=== PATIENT | male | born 1960 | race Caucasian/White ===

== ENCOUNTER 2017-04-13 06:20 | Day surgery (SDC) | payer OTHER ==
[2017-04-13] MEDS ORDERED: Versed 2 MG/2 ML Injection IV ONE (06:21)
[2017-04-13] MEDS ORDERED: DIPRIVAN 200 MG/20 ML IV ONE (06:21)
[2017-04-13] MEDS ORDERED: Lactated Ringers 1,000 ML IV SCH (06:30)
--- NOTE | 2017-04-13 07:44 | HP ---
DATE OF SURGERY: 04/13/2017 ADMISSION DIAGNOSIS: Screening. ANTICIPATED PROCEDURE: Colonoscopy. HISTORY OF PRESENT ILLNESS: The patient has no symptoms. No family history. He has not had a scope. He presents for colonsocopic examination. PAST MEDICAL HISTORY: ALLERGIES: NONE. MEDICATIONS: Flomax. PAST SURGICAL HISTORY: None. SOCIAL HISTORY: Negative. FAMILY HISTORY: Hypertension. REVIEW OF SYSTEMS: Negative. PHYSICAL EXAMINATION: VITAL SIGNS: Normal. CHEST: Clear. COR: Regular. ABDOMEN: No palpable organomegaly or mass. IMPRESSION: A patient requiring screening colonoscopy. PLAN: Screening colonoscopy under MAC sedation.
[2017-04-13] MEDS ORDERED: Lactated Ringers 1,000 ML IV ONE (09:14)
[2017-04-13 10:57] VITALS: O2SAT 99
[2017-04-13 10:58] VITALS: BP 147/103; PULSE 64
--- NOTE | 2017-04-13 14:54 | OP ---
SURGERY DATE/TIME: 04/13/2017 0855 PREOPERATIVE DIAGNOSIS: Screening. POSTOPERATIVE DIAGNOSIS: Two polyps 8 mm and 7 mm location cecum and distal descending colon two jars. PROCEDURE: Colonoscopy complete to cecum. Hot polypectomy x2. SURGEON: Kapil Prakash M.D. ANESTHESIA: MAC. COMPLICATIONS: None. CONDITION: Stable. INDICATION: A patient requiring evaluation. He has not had endoscopic examination to date. DESCRIPTION OF PROCEDURE: Taken to the endoscopy suite. Left lateral decubitus position. After suitable sedation obtained the scope advanced to the cecum, cecal trifurcation. Ileocecal valve was normal. Coming back on the first fold back in between the folds on the opposite wall of the ileocecal valve was an 8 mm polyp this was picked up and taken with hot biopsy forceps to extinction. 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 The ascending, hepatic, transverse, splenic, descending was normal until near the junction of the descending and sigmoid. A 7 mm polyp picked up and taken with hot biopsy forceps. This did seem to ooze and required additional cautery and it was dry at this time. The scope is withdrawn. No additional findings. IMPRESSION: Two polyps successfully taken. PLAN: Follow up in three years.
== END 2017-04-13 10:55 | disposition home or self-care (01) ==
LOC: SDC 06:20
PROVIDERS: ATTEND Surgery
PROC: 0DBM8ZX Excision of Descending Colon, Via Natural or Artificial Opening Endoscopic, Diagnostic (ICD-10-PCS; principal; 2017-04-13)
PROC: 0DBN8ZX Excision of Sigmoid Colon, Via Natural or Artificial Opening Endoscopic, Diagnostic (ICD-10-PCS; 2017-04-13)
DX: K63.5 Polyp of colon (principal); I10 Essential (primary) hypertension
CPT/HCPCS: 00810; 88305; J2250; J2704

== ENCOUNTER 2021-04-15 06:32 | Day surgery (SDC) | payer OTHER ==
--- NOTE | 2021-01-28 11:58 | HP ---
DATE OF SURGERY: 02/04/2021 HISTORY OF PRESENT ILLNESS: The patient presents for follow up colonoscopy. The patient has history of colon polyps on previous colonoscopy. The patient denies any GI signs or symptoms at this time. PAST MEDICAL HISTORY: Coronary artery disease, cardiac stents, hyperlipidemia, diabetes, benign prostatic hypertrophy. PAST SURGICAL HISTORY: Heart stent. ALLERGIES: NKDA. MEDICATIONS: Plavix, Crestor, Zetia, Metformin, Flomax, Amaryl, Coreg. FAMILY HISTORY: Diabetes, heart disease. SOCIAL HISTORY: None reported. REVIEW OF SYSTEMS: CONSTITUTIONAL: Denies fever or chills. CHEST: Denies shortness of breath. CVS: Denies chest pain. ABDOMEN: Denies abdominal pain, nausea, vomiting, diarrhea, constipation or rectal bleeding. PHYSICAL EXAMINATION: GENERAL: No acute distress. CHEST: Nonlabored. No shortness of breath. CVS: Regular rate and rhythm. ABDOMEN: Soft, nontender. IMPRESSION: History of colon polyps. PLAN: Colonoscopy with Dr. Kapil Prakash. As dictated by Lauren Bailon NP.
--- NOTE | 2021-04-12 13:42 | HP ---
DATE OF SURGERY: 04/15/2021 HISTORY OF PRESENT ILLNESS: The patient presents for three year follow up of colon polyps. Denies GI signs or symptoms. Denies family history of colon cancer. The patient complains of right upper quadrant and umbilical pain. He did have a small umbilical hernia on exam. PAST MEDICAL HISTORY: Hyperlipidemia, coronary artery disease, heart stents, benign prostatic hypertrophy, diabetes. PAST SURGICAL HISTORY: Heart stents. ALLERGIES: NKDA. MEDICATIONS: Plavix, Crestor, Zetia, Metformin, Flomax, Amaryl, Coreg/ FAMILY HISTORY: Heart disease, diabetes. SOCIAL HISTORY: None. REVIEW OF SYSTEMS: CONSTITUTIONAL: Denies fever or chills. CHEST: Denies shortness of breath. CVS: Denies chest pain. ABDOMEN: Reports some right upper quadrant and umbilical hernia pain. Denies nausea, vomiting, diarrhea, constipation or rectal bleeding. PHYSICAL EXAMINATION: GENERAL: No acute distress. CHEST: Nonlabored. No shortness of breath. CVS: Regular rate and rhythm. ABDOMEN: Soft, nontender. IMPRESSION: History of colon polyps. PLAN: Colonoscopy with Dr. Kapil Prakash. As dictated by Lauren Bailon NP.
[2021-04-15] MEDS ORDERED: Lactated Ringers 1,000 ML IV SCH (07:00)
[2021-04-15] MEDS ORDERED: DIPRIVAN 200 MG/20 ML IV ONE ×2 (07:21→09:15)
[2021-04-15 10:02] VITALS: O2SAT 95
[2021-04-15 10:07] VITALS: BP 118/71; PULSE 63
--- NOTE | 2021-04-15 12:54 | OP ---
SURGERY DATE/TIME: 04/15/2021 0855 PREOPERATIVE DIAGNOSIS: Follow up polyp. POSTOPERATIVE DIAGNOSES: 1) One polyp 1 cm distal descending colon. 2) Moderate internal hemorrhoids. PROCEDURES: 1) Colonoscopy complete to cecum. 2) Hot polypectomy x1. SURGEON: Kapil Prakash M.D. [employer]: Spring Sanchez M.D., [facility]. ANESTHESIA: MAC. COMPLICATIONS: None. CONDITION: Stable. INDICATION: A patient requiring evaluation. DESCRIPTION OF PROCEDURE: Taken to endoscopy. MAC sedation provided. Scope introduced. The anal digital examination was satisfactory and the prostate was satisfactory for age, nothing specific. The scope advanced to the cecum. Base of the cecum, ileocecal valve, appendiceal orifice, ascending, hepatic, transverse, splenic and descending. In the distal descending, a 1 cm polyp was picked up and extinguished with hot biopsy forceps. Sigmoid, rectum, anus moderate internal hemorrhoids. The patient tolerated the procedure satisfactorily. Follow up in three to five years. The patient had an excellent bowel prep. His colon was really quite nice except for the one polyp.
== END 2021-04-15 10:15 | disposition home or self-care (01) ==
LOC: SDC 06:32
PROVIDERS: ATTEND Surgery
DX: Z09 Encounter for follow-up examination after completed treatment for conditions other than malignant neoplasm (principal); Z86.010 Personal history of colon polyps; D12.4 Benign neoplasm of descending colon; K64.8 Other hemorrhoids; E11.9 Type 2 diabetes mellitus without complications; Z79.899 Other long term (current) drug therapy
CPT/HCPCS: 82947; 88305; J2704

== ENCOUNTER 2023-12-15 15:08 | Inpatient (IN) | payer OTHER ==
--- NOTE | 2023-12-15 15:11 | ERPHSYRPT ---
- History of Present Illness Time Seen by Provider: 12/15/23 15:10 Source: patient Exam Limitations: no limitations Physician History: This is an overweight 63-year-old white male patient who presents to the emergency department with his spouse by private vehicle secondary to fever and dysuria. Patient had old Keflex available to him so he took that medication. He has taken a total of 3 doses of that antibiotic. He also has had some nausea and bodyaches as well. Patient denies chest pain. Patient denies shortness of breath. Patient does have a history of coronary artery disease and is on Plavix. He has a history of hypertension and type 2 diabetes. He also has a history of hyperlipidemia. Timing/Duration: yesterday Fever Severity: mild Fever Therapy CLAIMS COORDINATOR: Acetaminophen Associated Symptoms: muscle aches, nausea/vomiting, weakness, No chest pain, No confusion, No cough, No diaphoresis, No shortness of breath, No sore throat, No stiff neck Allergies/Adverse Reactions: No Known Drug Allergies Allergy (Verified 12/15/23 15:13) Home Medications: Aspirin 81 mg PO HS 12/02/19 [History] Ezetimibe 10 mg [Zetia 10 MG] 10 mg PO DAILY 12/02/19 [History] Glimepiride 4 mg [Amaryl 4 mg] 2 mg PO DAILY 12/02/19 [History] Carvedilol 3.125 mg [Coreg 3.125 MG] 3.125 mg PO DAILY 09/23/20 [History] Clopidogrel Bisulfate [PLAVIX Tablet] 75 mg PO DAILY 09/23/20 [History] Rosuvastatin Calcium [Crestor] 40 mg PO DAILY 09/23/20 [History] Cephalexin Mh 500 mg [Keflex 500 mg] 500 mg PO QID 12/15/23 [History] Fesoterodine Fumarate [Toviaz] 4 mg PO DAILY 12/15/23 [History] Metformin HCl [Metformin HCl ER] 750 mg PO DAILY 12/15/23 [History] Hx Tetanus, Diphtheria Vaccination/Date Given: Yes (2014) Hx Influenza Vaccination/Date Given: No Hx Pneumococcal Vaccination/Date Given: No Travel Risk - International Travel Have you traveled outside of the country in past 3 weeks: No - Emerging Infectious Disease Are you exhibiting symptoms associated with any current EIDs: Yes Symptoms: Fever, Headaches/Body Aches/ - Review of Systems Constitutional: Fever, Chills, Weakness Eyes: No Symptoms Ears, Nose, & Throat: No Symptoms Respiratory: No Symptoms Cardiac: No Symptoms Abdominal/Gastrointestinal: Nausea, Appetite Changes Genitourinary Symptoms: Dysuria, Frequency, Urgency Musculoskeletal: Arthralgias, Myalgias Skin: No Symptoms Neurological: No Symptoms Psychological: No Symptoms Endocrine: No Symptoms Hematologic/Lymphatic: No Symptoms Immunological/Allergic: No Symptoms All Other Systems: Reviewed and Negative - Past Medical History Pertinent Past Medical History: Yes Neurological History: No Pertinent History ENT History: No Pertinent History Cardiac History: Coronary Artery Disease, High Cholesterol, Hypertension Respiratory History: Sleep Apnea, Other Endocrine Medical History: Diabetes Type II Musculoskeletal History: No Pertinent History GI Medical History: No Pertinent History History: Other Psycho-Social History: No Pertinent History Male Reproductive Disorders: No Pertinent History Other Medical History: takes flomax, uses breathing machine at night - Past Surgical History Past Surgical History: Yes Neuro Surgical History: No Pertinent History Cardiac: Cardiac Catheterization, Cardiac Stent Respiratory: No Pertinent History Gastrointestinal: No Pertinent History Genitourinary: No Pertinent History Musculoskeletal: No Pertinent History Male Surgical History: No Pertinent History - Social History Smoking Status: Never smoker Exposure to second hand smoke: No Drug Use: none Patient Lives Alone: No - Nursing Vital Signs Nursing Vital Signs: Initial Vital Signs Temperature 99.3 F 12/15/23 15:16 Pulse Rate 99 H 12/15/23 15:16 Respiratory Rate 25 H 12/15/23 15:16 Blood Pressure 102/67 12/15/23 15:16 O2 Sat by Pulse Oximetry 97 12/15/23 15:16 Pain Scale Pain Intensity 0 - Physical Exam General Appearance: no apparent distress, alert, anxiety, obese Eye Exam: PERRL/EOMI, eyes nml inspection ENT Exam: normal ENT inspection, no apparent trauma, hearing grossly normal, TMs normal Neck Exam: normal inspection, non-tender, supple, full range of motion Respiratory Exam: normal breath sounds, lungs clear, no respiratory distress, no accessory muscle use, No chest non-tender Cardiovascular/Chest Exam: normal heart sounds, regular rate/rhythm Gastrointestinal/Abdominal Exam: soft, non tender, no distention, no mass, no guarding, no ecchymosis, no organomegaly, no pulsatile mass, normal bowel sounds Rectal Exam: not done Extremity Exam: normal range of motion, normal inspection Neurologic Exam: alert, oriented x 3, cooperative, ton container filler II-XII nml as tested, nml cerebellar function, nml station & gait, sensation nml Skin Exam: normal color, warm, dry Lymphatic: No adenopathy SpO2 Interpretation: normal O2 Delivery: Room Air - Course Nursing assessment & vital signs reviewed: Yes Ordered Tests: Active Orders 24 hr Category Date Time Status Pony Ride Operator STAT Care 12/15/23 15:41 Active IV Insertion STAT Care 12/15/23 15:41 Active Pulse Oximetry (ED) STAT Care 12/15/23 15:41 Active ABDOMEN AND PELVIS W/0 CONTRAS [CT] Stat Exams 12/15/23 16:08 Completed CHEST 1 VIEW (PORTABLE) Stat Exams 12/15/23 15:41 Completed BLOOD CULTURE Stat Lab 12/15/23 16:08 Received CBC W DIFF Stat Lab 12/15/23 16:00 Completed CMP Stat Lab 12/15/23 16:00 Completed CULTURE,URINE Stat Lab 12/15/23 18:02 Received Lactic Acid Stat Lab 12/15/23 16:30 Completed MONO SCREEN Stat Lab 12/15/23 16:00 Completed UA W/RFX UR CULTURE Stat Lab 12/15/23 18:02 Completed Medication Summary Generic Name Dose Route Start Last Admin Trade Name Freq PRN Reason Stop Dose Admin Sodium Chloride 1,000 mls @ 150 mls/hr 12/15/23 19:00 12/15/23 19:06 Sodium Chloride 0.9% 1000 Ml IV 01/14/24 18:59 150 mls/hr .[id number] GEM Administration Discontinued Medications Generic Name Dose Route Start Last Admin Trade Name Freq PRN Reason Stop Dose Admin Acetaminophen 650 mg 12/15/23 15:41 12/15/23 15:55 Acetaminophen 325 Mg Tablet PO 12/15/23 15:42 650 mg STAT STA Administration Acetaminophen Confirm 12/15/23 15:50 Acetaminophen 325 Mg Tablet Administered 12/15/23 15:51 Dose 650 mg .ROUTE .STK-MED ONE Sodium Chloride 1,000 mls @ 999 mls/hr 12/15/23 15:41 12/15/23 17:19 Sodium Chloride 0.9% 1000 Ml IV 12/15/23 16:41 Infused .Q1H1M STA Infusion Sodium Chloride Confirm 12/15/23 15:50 Sodium Chloride 0.9% 1000 Ml Administered 12/15/23 15:51 Dose 1,000 mls @ ud .ROUTE .STK-MED ONE Sodium Chloride 1,000 mls @ 999 mls/hr 12/15/23 17:20 12/15/23 19:24 Sodium Chloride 0.9% 1000 Ml IV 12/15/23 18:20 Infused .Q1H1M STA Infusion Sodium Chloride Confirm 12/15/23 17:28 Sodium Chloride 0.9% 1000 Ml Administered 12/15/23 17:29 Dose 1,000 mls @ ud .ROUTE .STK-MED ONE Ceftriaxone Sodium 1 gm in 100 mls @ 200 mls/hr 12/15/23 18:37 12/15/23 19:36 Rocephin 1 Gm / 100 Ml Nacl IV 12/15/23 19:06 Infused STAT ONE Infusion Ceftriaxone Sodium Confirm 12/15/23 18:43 Rocephin 1 Gm / 100 Ml Nacl Administered 12/15/23 18:44 Dose 1 gm in 100 mls @ ud IV .STK-MED ONE Phenazopyridine HCl 200 mg 12/15/23 15:47 12/15/23 15:56 Phenazopyridine Hcl 200 Mg Tablet PO 12/15/23 15:48 200 mg STAT ONE Administration Phenazopyridine HCl Confirm 12/15/23 15:49 Phenazopyridine Hcl 200 Mg Tablet Administered 12/15/23 15:50 Dose 200 mg .ROUTE .STK-MED ONE Lab/Rad Data: Laboratory Result Diagrams 12/15/23 16:00 12/15/23 16:00 Laboratory Results 12/15/23 12/15/23 12/15/23 Range/Units 18:02 16:30 16:20 WBC (4.23-9.07) x10^3/uL RBC (4.63-6.08) x10^6/uL Hgb (13.7-17.5) g/dL Hct (40.1-51.0) % MCV (79.0-92.2) fL MCH (25.7-32.2) pg MCHC (32.3-36.5) g/dL RDW (11.6-14.4) % Plt Count (163-337) x10^3/uL MPV (9.4-12.4) fL Gran % (34.0-67.9) % Immature Gran % (Auto) (0.001-0.429) % Nucleat RBC Rel Count (0.00-0.2) % Eos # (Auto) (0.04-0.54) x10^3/uL Immature Gran # (Auto) (0.001-0.031) x10^3u/L Absolute Lymphs (auto) (1.32-3.57) x10^3/uL Absolute Monos (auto) (0.30-0.82) x10^3/uL Absolute Nucleated RBC (0.00-0.012) x10^3u/L Lymphocytes % (21.8-53.1) % Monocytes % (5.3-12.2) % Eosinophils % (0.8-7.0) % Basophils % (0.2-1.2) % Absolute Granulocytes (1.78-5.38) x10^3/uL Basophils # (0.01-0.08) x10^3/uL Sodium (135-145) mmol/L Potassium (3.5-5.1) mmol/L Chloride (98-107) mmol/L Carbon Dioxide (22-30) mmol/L Anion Gap (5-15) MEQ/L BUN (9-20) mg/dL Creatinine (0.66-1.25) mg/dL Estimated GFR ML/MIN Glucose (74-106) mg/dL Lactic Acid 1.7 (0.4-2.0) Calcium (8.4-10.2) mg/dL Total Bilirubin (0.2-1.3) mg/dL AST (17-59) U/L ALT (0-50) U/L Alkaline Phosphatase (38-126) U/L Serum Total Protein (6.3-8.2) g/dL Albumin (3.5-5.0) g/dL Urine Color [place] A (Yellow) Urine Appearance Clear (Clear) Urine pH 5.0 (4.6-8.0) Ur Specific [place] >=1.030 A (1.005-1.030) Urine Protein Negative (Negative) Urine Glucose (UA) >=1000 A (Negative) mg/dL Urine Ketones Trace A (Negative) Urine Blood Negative (Negative) Urine Nitrite Positive A (Negative) Urine Bilirubin Small A (Negative) Urine Urobilinogen 1.0 A (0.2) mg/dL Ur Leukocyte Esterase Small A (Negative) U Hyaline Cast (Auto) NONE SEEN (0-2) /LPF Urine Microscopic RBC 3-5 (0-5) /HPF Urine Microscopic WBC 6-10 A (0-5) /HPF Ur Epithelial Cells None Seen (None Seen) /HPF Urine Bacteria Rare A (None Seen) /HPF Urine Culture Reflexed YES (NO) Monoscreen (NEGATIVE) Influenza Type A Ag NEGATIVE (NEGATIVE) Influenza Type B Ag NEGATIVE (NEGATIVE) RSV (PCR) NEGATIVE (NEGATIVE) SARS-CoV-2 (PCR) NEGATIVE (NEGATIVE) Slides for Path Review 12/15/23 12/15/23 12/15/23 Range/Units 16:00 16:00 16:00 WBC 8.4 (4.23-9.07) x10^3/uL RBC 4.39 L (4.63-6.08) x10^6/uL Hgb 13.5 L (13.7-17.5) g/dL Hct 39.0 L (40.1-51.0) % MCV 88.8 (79.0-92.2) fL MCH 30.8 (25.7-32.2) pg MCHC 34.6 (32.3-36.5) g/dL RDW 12.6 (11.6-14.4) % Plt Count 102 L (163-337) x10^3/uL MPV 9.4 (9.4-12.4) fL Gran % 83.7 H (34.0-67.9) % Immature Gran % (Auto) 0.6 H (0.001-0.429) % Nucleat RBC Rel Count 0.0 (0.00-0.2) % Eos # (Auto) 0.02 L (0.04-0.54) x10^3/uL Immature Gran # (Auto) 0.05 H (0.001-0.031) x10^3u/L Absolute Lymphs (auto) 0.44 L (1.32-3.57) x10^3/uL Absolute Monos (auto) 0.84 H (0.30-0.82) x10^3/uL Absolute Nucleated RBC 0.00 (0.00-0.012) x10^3u/L Lymphocytes % 5.3 L (21.8-53.1) % Monocytes % 10.0 (5.3-12.2) % Eosinophils % 0.2 L (0.8-7.0) % Basophils % 0.2 (0.2-1.2) % Absolute Granulocytes 7.01 H (1.78-5.38) x10^3/uL Basophils # 0.02 (0.01-0.08) x10^3/uL Sodium 136 (135-145) mmol/L Potassium 3.7 (3.5-5.1) mmol/L Chloride 104 (98-107) mmol/L Carbon Dioxide 19 L (22-30) mmol/L Anion Gap 16.8 H (5-15) MEQ/L BUN 20 (9-20) mg/dL Creatinine 0.87 (0.66-1.25) mg/dL Estimated GFR 97.6 ML/MIN Glucose 143 H (74-106) mg/dL Lactic Acid (0.4-2.0) Calcium 9.7 (8.4-10.2) mg/dL Total Bilirubin 1.70 H (0.2-1.3) mg/dL AST 27 (17-59) U/L ALT 24 (0-50) U/L Alkaline Phosphatase 85 (38-126) U/L Serum Total Protein 7.4 (6.3-8.2) g/dL Albumin 4.5 (3.5-5.0) g/dL Urine Color (Yellow) Urine Appearance (Clear) Urine pH (4.6-8.0) Ur Specific [place] (1.005-1.030) Urine Protein (Negative) Urine Glucose (UA) (Negative) mg/dL Urine Ketones (Negative) Urine Blood (Negative) Urine Nitrite (Negative) Urine Bilirubin (Negative) Urine Urobilinogen (0.2) mg/dL Ur Leukocyte Esterase (Negative) U Hyaline Cast (Auto) (0-2) /LPF Urine Microscopic RBC (0-5) /HPF Urine Microscopic WBC (0-5) /HPF Ur Epithelial Cells (None Seen) /HPF Urine Bacteria (None Seen) /HPF Urine Culture Reflexed (NO) Monoscreen NEGATIVE (NEGATIVE) Influenza Type A Ag (NEGATIVE) Influenza Type B Ag (NEGATIVE) RSV (PCR) (NEGATIVE) SARS-CoV-2 (PCR) (NEGATIVE) Slides for Path Review YES - Progress Progress: improved, re-examined Progress Note: 12/15/23 16:09 Medical decision making and the assignment of moderate complexity to this patient's medical issue today is based on review of the patient's past medical history, review the patient's medication list, review patient drug allergy list, history present illness and physical findings on examination. The workup in this patient includes placement of intravenous line, chest x-ray, CT scan of the abdomen pelvis without contrast, IV fluid infusion, CBC, CMP, lactic acid level, urinalysis, viral swabs, monotest. We also provide the patient with Tylenol 650 mg. We will also draw blood cultures. Will provide the patient wi th Pyridium 200 mg orally to help ease his dysuria. Differential diagnosis includes but is not limited to urinary tract infection, pyelonephritis, viral illness 12/15/23 17:10 The chest x-ray was interpreted by the radiologist and I reviewed the impression. The impression states stable, CT proven lingula pleuralparenchymal thickening/scarring. This CT scan of the abdomen pelvis without contrast was interpreted by the radiologist and I reviewed the impression. Impression states worsening cho lelithiasis with multiple gallstones present. The largest measures 1.7 cm and it is in the neck of the gallbladder. There are new nonobstructing left renal micro calculi present. There is no evidence of free air or free fluid. There is mild scattered aortoiliac calcifications without abdominal aortic aneurysm. Counseled pt/family regarding: lab results, diagnosis, rad results - Departure Departure Disposition: Observation Clinical Impression: UTI (urinary tract infection), Fever, Hypotension Condition: Fair Critical Care Time: No Critical Care Time(excluding separately billable procedures): Critical 30-74 mins (45 minutes) [facility] - Follow up/PCP as directed
[2023-12-15] MEDS ORDERED: PYRIDIUM 200 MG ONE (15:49)
[2023-12-15] MEDS ORDERED: Sodium Chloride 0.9% 1000 ML 1,000 ML ONE ×3 (15:50→18:57)
[2023-12-15] MEDS ORDERED: TYLENOL 325 MG ONE (15:50)
[2023-12-15] MEDS: TYLENOL 325 MG PO STA (15:55)
[2023-12-15] MEDS: Sodium Chloride 0.9% 1000 ML 1,000 ML IV STA ×2 (15:56→17:54)
[2023-12-15] MEDS: PYRIDIUM 200 MG PO ONE (15:56)
[2023-12-15 16:33] LABS: Absolute Neutrophil Ct (ANC) 7.01 x10^3/uL (1.78-5.38); BASOPHIL % 0.2 % (0.2-1.2); Basophil (Absolute #) 0.02 x10^3/uL (0.01-0.08); Eosinophil % 0.2 % (0.8-7.0); Eosinophil (Absolute #) 0.02 x10^3/uL (0.04-0.54); Hemoglobin 13.5 g/dL (13.7-17.5); IMMATURE GRAN # 0.05 x10^3u/L (0.001-0.031); IMMATURE GRAN % 0.6 % (0.001-0.429); Lymphocyte (Absolute #) 0.44 x10^3/uL (1.32-3.57); Lymphocytes % 5.3 % (21.8-53.1); Mean Cell Volume 88.8 fL (79.0-92.2); Mean Corpuscular Hemoglobin 30.8 pg (25.7-32.2); Mean Corpuscular Hgb Concent. 34.6 g/dL (32.3-36.5); Mean Platelet Volume 9.4 fL (9.4-12.4); Monocyte (Absolute #) 0.84 x10^3/uL (0.30-0.82); Neutrophil % 83.7 % (34.0-67.9); Platelet Count 102 x10^3/uL (163-337); Red Blood Count 4.39 x10^6/uL (4.63-6.08); Red Cell Distribution Width 12.6 % (11.6-14.4); White Blood Count 8.4 x10^3/uL (4.23-9.07)
[2023-12-15 16:45] LABS: ALBUMIN 4.5 g/dL (3.5-5.0); ANION GAP 16.8 MEQ/L (5-15); BILIRUBIN,TOTAL 1.7 mg/dL (0.2-1.3); Calcium 9.7 mg/dL (8.4-10.2); Creatinine 1 0.87 mg/dL (0.66-1.25); EST GLOMERULAR FILTRATION RATE 97.6 ML/MIN; Potassium 3.7 mmol/L (3.5-5.1); Total Protein 7.4 g/dL (6.3-8.2)
--- NOTE | 2023-12-15 16:57 | XRAY ---
Indication: Fever and flank pain. Multiple contiguous axial images obtained through the abdomen and pelvis without contrast using renal stone protocol. Comparison: February 20, 2015 Lung bases demonstrates stable posterior right base calcified granuloma and minimal lingula pleural-parenchymal scarring. No infiltrate or effusion. Heart not enlarged. Again small hiatal hernia. Left mid kidney demonstrates new nonobstructing 3 mm calculus and 1.3 cm cortical cyst. No other calculus or evidence for obstructive uropathy in either system. Noncontrasted stomach and bowel loops appear nonobstructed with normal appendix. New minimal scattered colonic diverticulosis greatest ascending colon. Gallbladder again demonstrates a few gallstones increased in number and size, largest in neck of gallbladder measuring 1.7 cm. No free fluid/air. Remaining liver, gallbladder, pancreas, spleen, adrenal glands, kidneys, ureters, and bladder are unremarkable for noncontrast exam. New mild scattered aortoiliac calcifications without AAA. Osseous structures intact with minimal degenerative changes throughout the thoracolumbar spine. Stable small umbilical hernia with now 1.8 cm cyst. Impression: 1. New nonobstructing left renal micro-calculus and cyst. 2. Worsening cholelithiasis. 3. Chronic findings including hiatal hernia, colonic diverticulosis arteriosclerotic disease, umbilical hernia, and chronic bony findings.
--- NOTE | 2023-12-15 16:59 | XRAY ---
Indication: Fever. Comparison: None Portable chest rotated demonstrating stable CT proven lingula pleural-parenchymal thickening/scarring. Remaining heart and lungs unremarkable. Bony thorax intact.
[2023-12-15 17:00] LABS: Slide Review 1 YES
[2023-12-15 17:12] LABS: INFLUENZA A NEGATIVE (NEGATIVE); INFLUENZA B NEGATIVE (NEGATIVE); RESPIRATORY SYNCTIAL VIRUS NEGATIVE (NEGATIVE); SARS-CoV-2 Xpert Express NEGATIVE (NEGATIVE)
[2023-12-15 18:26] LABS: Appearance Clear (Clear); Bilirubin Small (Negative); Blood Negative (Negative); Glucose, Urine >=1000 mg/dL (Negative); Hyaline Casts NONE SEEN /LPF (0-2); Ketones Trace (Negative); Leukocyte Esterase Small (Negative); Nitrite Positive (Negative); Protein,Urine Dip Negative (Negative); Specific Gravity >=1.030 (1.005-1.030)
[2023-12-15 18:27] LABS: ADD URINE CULTURE? YES (NO); Bacteria Rare /HPF (None Seen); Epithelial Cells None Seen /HPF (None Seen)
[2023-12-15] MEDS ORDERED: ROCEPHIN 1 GM / 100 ML NaCl 1 GM/100 ML IVPB IV ONE (18:43)
[2023-12-15] MEDS: ROCEPHIN 1 GM / 100 ML NaCl 1 GM/100 ML IVPB IV ONE (19:04)
[2023-12-15] MEDS: Sodium Chloride 0.9% 1000 ML 1,000 ML IV SCH (19:06)
[2023-12-15] MEDS ORDERED: HUMULIN R SQ PRN (20:34)
[2023-12-15] MEDS: TYLENOL 325 MG PO PRN (21:45)
--- NOTE | 2023-12-16 00:49 | PCM.HP ---
History of Present Illness - Chief Complaint Chief Complaint: UTI, fever, hypotension Date: 12/16/23 History of Present Illness: Mr. Espinoza is a 63 year gentleman with CAD s/p PCI, HTN, HLD, DM2, and ROLAND who presents with dysuria, rigors, chills, and dizziness. He admits to dysuria for two days followed by rigors, chills, and dizziness the last day. Upon arrival to [place], his laboratory data was remarkable for a UTI, HCO3 19, and an elevated bilirubin, while his imaging revealed chronic issues - umbilical hernia, hiatal hernia, and worsening cholelithiasis. Additionally, he was found to have soft blood pressures, but MAPs have been greater than 65. On my examination, he is feeling about the same denying any current fevers, chills, nausea, vomiting, diarrhea, syncope, presyncope, visual changes, orthopnea, PND, odynophagia, dysphagia, chest pain, shortness of breath, belly pain, dysuria, hematuria, melena, hematochezia, or neurological changes. All other systems were reviewed and were negative. - Review of Systems Constitutional: Other ( PER HPI) Medications & Allergies Home Medications: Home Medication List Tamsulosin HCl 0.4 mg [Flomax 0.4 MG] 0.4 mg PO DAILY #7 cap 02/18/15 [Rx Confirmed 12/15/23] Aspirin 81 mg PO DAILY 12/02/19 [History Confirmed 12/15/23] Ezetimibe 10 mg [Zetia 10 MG] 10 mg PO DAILY 12/02/19 [History Confirmed 12/15/23] Glimepiride 4 mg [Amaryl 4 mg] 4 mg PO DAILY 12/02/19 [History Confirmed 12/15/23] Carvedilol 3.125 mg [Coreg 3.125 MG] 3.125 mg PO DAILY 09/23/20 [History Confirmed 12/15/23] Clopidogrel Bisulfate [PLAVIX Tablet] 75 mg PO DAILY 09/23/20 [History Confirmed 12/15/23] Rosuvastatin Calcium [Crestor] 40 mg PO DAILY 09/23/20 [History Confirmed 12/15/23] Dabigatran Etexilate Mesylate [Pradaxa] 10 mg PO DAILY 12/15/23 [History Confirmed 12/15/23] Fesoterodine Fumarate [Toviaz] 4 mg PO DAILY 12/15/23 [History Confirmed 12/15/23] Metformin HCl [Metformin HCl ER] 750 mg PO DAILY 12/15/23 [History Confirmed 12/15/23] Allergies/Adverse Reactions: Allergies Allergy/AdvReac Type Severity Reaction Status Date / Time No Known Drug Allergies Allergy Verified 12/15/23 20:47 - Past Medical History Past Medical History: Yes Neurological History: No Pertinent History ENT History: No Pertinent History Cardiac History: Coronary Artery Disease, High Cholesterol, Hypertension Respiratory History: Sleep Apnea, Other Endocrine Medical History: Diabetes Type II Musculoskelatal History: No Pertinent History GI Medical History: No Pertinent History History: Other Pyscho-Social History: No Pertinent History Male Reproductive Disorders: No Pertinent History Comment: takes flomax, uses autopap breathing machine at night, 1 stent - Past Surgical History Past Surgical History: Yes Neuro Surgical History: No Pertinent History Cardiac History: Cardiac Catheterization, Cardiac Stent Respiratory Surgery: No Pertinent History GI Surgical History: No Pertinent History Genitourinary Surgical Hx: No Pertinent History Musculskeletal Surgical Hx: No Pertinent History Male Surgical History: No Pertinent History Other Surgical History: 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 Penn Significant Family History: no pertinent family hx - Social History Smoking Status: Never smoker Exposure to second hand smoke: No Alcohol: Rarely Drug Use: none - Social Determinants of Health Will the patient participate in the screening: Yes Do you worry about a steady place to live?: No Do you have any problems with any of the following?: No known problems In the past 12 months,have you had to go without utilities?: No Have you or anyone in your house had to go without enough: No Transportation Issues: No Has anyone in your support network made you feel unsafe?: No Does the patient want assistance with any of the above?: No - Physical Exam Vital Signs: Vital Signs - 24 hr Temp Pulse Resp BP BP Pulse Ox 12/16/23 00:00 102.1 F 88 18 94/52 96 12/15/23 20:34 98.9 F 91 H 26 H 108/65 94 L 12/15/23 20:01 80 12 91/48 100 12/15/23 19:30 77 12 94/69 98 12/15/23 19:24 79 13 91/52 98 12/15/23 19:07 98.5 F 12/15/23 19:00 87 23 90/46 12/15/23 18:53 77 35 H 94/60 97 12/15/23 18:52 76 19 89/64 99 12/15/23 18:30 81 20 91/46 97 12/15/23 18:01 93 H 22 100/64 12/15/23 17:30 79 24 105/63 92 L 12/15/23 17:00 80 21 95/47 95 12/15/23 16:48 80 24 95/54 94 L 12/15/23 16:47 87 28 H 96 12/15/23 16:46 87 14 96 12/15/23 16:33 90 21 92 L 12/15/23 16:00 90 23 109/69 95 12/15/23 15:41 93 L 12/15/23 15:30 93 H 29 H 111/69 12/15/23 15:16 99.3 F 92 H 21 102/67 102/67 94 L General Appearance: no apparent distress, alert Neurologic Exam: alert, oriented x 3, cooperative, normal mood/affect, nml cerebellar function, nml station & gait, sensation nml, No motor deficits Eye Exam: PERRL/EOMI, eyes nml inspection Ears, Nose, Throat Exam: normal ENT inspection, TMs normal, pharynx normal, moist mucous membranes Neck Exam: normal inspection, non-tender, supple, full range of motion Respiratory Exam: normal breath sounds, lungs clear, No respiratory distress Cardiovascular Exam: regular rate/rhythm, normal heart sounds, normal peripheral pulses Gastrointestinal/Abdomen Exam: soft, normal bowel sounds, No tenderness, No mass Back Exam: normal inspection, normal range of motion, No CVA tenderness, No vertebral tenderness Extremity Exam: normal inspection, normal range of motion, pelvis stable Skin Exam: normal color, warm, dry, No rash Lymphatic Exam: No adenopathy Results - Labs Lab/Micro Results: Lab Results-Last 24 Hours 12/15/23 12/15/23 12/15/23 Range/Units 16:00 16:00 16:00 WBC 8.4 (4.23-9.07) x10^3/uL RBC 4.39 L (4.63-6.08) x10^6/uL Hgb 13.5 L (13.7-17.5) g/dL Hct 39.0 L (40.1-51.0) % MCV 88.8 (79.0-92.2) fL MCH 30.8 (25.7-32.2) pg MCHC 34.6 (32.3-36.5) g/dL RDW 12.6 (11.6-14.4) % Plt Count 102 L (163-337) x10^3/uL MPV 9.4 (9.4-12.4) fL Gran % 83.7 H (34.0-67.9) % Immature Gran % (Auto) 0.6 H (0.001-0.429) % Nucleat RBC Rel Count 0.0 (0.00-0.2) % Eos # (Auto) 0.02 L (0.04-0.54) x10^3/uL Immature Gran # (Auto) 0.05 H (0.001-0.031) x10^3u/L Absolute Lymphs (auto) 0.44 L (1.32-3.57) x10^3/uL Absolute Monos (auto) 0.84 H (0.30-0.82) x10^3/uL Absolute Nucleated RBC 0.00 (0.00-0.012) x10^3u/L Lymphocytes % 5.3 L (21.8-53.1) % Monocytes % 10.0 (5.3-12.2) % Eosinophils % 0.2 L (0.8-7.0) % Basophils % 0.2 (0.2-1.2) % Absolute Granulocytes 7.01 H (1.78-5.38) x10^3/uL Basophils # 0.02 (0.01-0.08) x10^3/uL Sodium 136 (135-145) mmol/L Potassium 3.7 (3.5-5.1) mmol/L Chloride 104 (98-107) mmol/L Carbon Dioxide 19 L (22-30) mmol/L Anion Gap 16.8 H (5-15) MEQ/L BUN 20 (9-20) mg/dL Creatinine 0.87 (0.66-1.25) mg/dL Estimated GFR 97.6 ML/MIN Glucose 143 H (74-106) mg/dL POC Glucometer (74 to 106) mg/dL Lactic Acid (0.4-2.0) Calcium 9.7 (8.4-10.2) mg/dL Total Bilirubin 1.70 H (0.2-1.3) mg/dL AST 27 (17-59) U/L ALT 24 (0-50) U/L Alkaline Phosphatase 85 (38-126) U/L Serum Total Protein 7.4 (6.3-8.2) g/dL Albumin 4.5 (3.5-5.0) g/dL Urine Color (Yellow) Urine Appearance (Clear) Urine pH (4.6-8.0) Ur Specific [place] (1.005-1.030) Urine Protein (Negative) Urine Glucose (UA) (Negative) mg/dL Urine Ketones (Negative) Urine Blood (Negative) Urine Nitrite (Negative) Urine Bilirubin (Negative) Urine Urobilinogen (0.2) mg/dL Ur Leukocyte Esterase (Negative) U Hyaline Cast (Auto) (0-2) /LPF Urine Microscopic RBC (0-5) /HPF Urine Microscopic WBC (0-5) /HPF Ur Epithelial Cells (None Seen) /HPF Urine Bacteria (None Seen) /HPF Urine Culture Reflexed (NO) Monoscreen NEGATIVE (NEGATIVE) Influenza Type A Ag (NEGATIVE) Influenza Type B Ag (NEGATIVE) RSV (PCR) (NEGATIVE) SARS-CoV-2 (PCR) (NEGATIVE) Slides for Path Review YES 12/15/23 12/15/23 12/15/23 Range/Units 16:20 16:30 18:02 WBC (4.23-9.07) x10^3/uL RBC (4.63-6.08) x10^6/uL Hgb (13.7-17.5) g/dL Hct (40.1-51.0) % MCV (79.0-92.2) fL MCH (25.7-32.2) pg MCHC (32.3-36.5) g/dL RDW (11.6-14.4) % Plt Count (163-337) x10^3/uL MPV (9.4-12.4) fL Gran % (34.0-67.9) % Immature Gran % (Auto) (0.001-0.429) % Nucleat RBC Rel Count (0.00-0.2) % Eos # (Auto) (0.04-0.54) x10^3/uL Immature Gran # (Auto) (0.001-0.031) x10^3u/L Absolute Lymphs (auto) (1.32-3.57) x10^3/uL Absolute Monos (auto) (0.30-0.82) x10^3/uL Absolute Nucleated RBC (0.00-0.012) x10^3u/L Lymphocytes % (21.8-53.1) % Monocytes % (5.3-12.2) % Eosinophils % (0.8-7.0) % Basophils % (0.2-1.2) % Absolute Granulocytes (1.78-5.38) x10^3/uL Basophils # (0.01-0.08) x10^3/uL Sodium (135-145) mmol/L Potassium (3.5-5.1) mmol/L Chloride (98-107) mmol/L Carbon Dioxide (22-30) mmol/L Anion Gap (5-15) MEQ/L BUN (9-20) mg/dL Creatinine (0.66-1.25) mg/dL Estimated GFR ML/MIN Glucose (74-106) mg/dL POC Glucometer (74 to 106) mg/dL Lactic Acid 1.7 (0.4-2.0) Calcium (8.4-10.2) mg/dL Total Bilirubin (0.2-1.3) mg/dL AST (17-59) U/L ALT (0-50) U/L Alkaline Phosphatase (38-126) U/L Serum Total Protein (6.3-8.2) g/dL Albumin (3.5-5.0) g/dL Urine Color [place] A (Yellow) Urine Appearance Clear (Clear) Urine pH 5.0 (4.6-8.0) Ur Specific [place] >=1.030 A (1.005-1.030) Urine Protein Negative (Negative) Urine Glucose (UA) >=1000 A (Negative) mg/dL Urine Ketones Trace A (Negative) Urine Blood Negative (Negative) Urine Nitrite Positive A (Negative) Urine Bilirubin Small A (Negative) Urine Urobilinogen 1.0 A (0.2) mg/dL Ur Leukocyte Esterase Small A (Negative) U Hyaline Cast (Auto) NONE SEEN (0-2) /LPF Urine Microscopic RBC 3-5 (0-5) /HPF Urine Microscopic WBC 6-10 A (0-5) /HPF Ur Epithelial Cells None Seen (None Seen) /HPF Urine Bacteria Rare A (None Seen) /HPF Urine Culture Reflexed YES (NO) Monoscreen (NEGATIVE) Influenza Type A Ag NEGATIVE (NEGATIVE) Influenza Type B Ag NEGATIVE (NEGATIVE) RSV (PCR) NEGATIVE (NEGATIVE) SARS-CoV-2 (PCR) NEGATIVE (NEGATIVE) Slides for Path Review 12/15/23 Range/Units 21:40 WBC (4.23-9.07) x10^3/uL RBC (4.63-6.08) x10^6/uL Hgb (13.7-17.5) g/dL Hct (40.1-51.0) % MCV (79.0-92.2) fL MCH (25.7-32.2) pg MCHC (32.3-36.5) g/dL RDW (11.6-14.4) % Plt Count (163-337) x10^3/uL MPV (9.4-12.4) fL Gran % (34.0-67.9) % Immature Gran % (Auto) (0.001-0.429) % Nucleat RBC Rel Count (0.00-0.2) % Eos # (Auto) (0.04-0.54) x10^3/uL Immature Gran # (Auto) (0.001-0.031) x10^3u/L Absolute Lymphs (auto) (1.32-3.57) x10^3/uL Absolute Monos (auto) (0.30-0.82) x10^3/uL Absolute Nucleated RBC (0.00-0.012) x10^3u/L Lymphocytes % (21.8-53.1) % Monocytes % (5.3-12.2) % Eosinophils % (0.8-7.0) % Basophils % (0.2-1.2) % Absolute Granulocytes (1.78-5.38) x10^3/uL Basophils # (0.01-0.08) x10^3/uL Sodium (135-145) mmol/L Potassium (3.5-5.1) mmol/L Chloride (98-107) mmol/L Carbon Dioxide (22-30) mmol/L Anion Gap (5-15) MEQ/L BUN (9-20) mg/dL Creatinine (0.66-1.25) mg/dL Estimated GFR ML/MIN Glucose (74-106) mg/dL POC Glucometer 79 (74 to 106) mg/dL Lactic Acid (0.4-2.0) Calcium (8.4-10.2) mg/dL Total Bilirubin (0.2-1.3) mg/dL AST (17-59) U/L ALT (0-50) U/L Alkaline Phosphatase (38-126) U/L Serum Total Protein (6.3-8.2) g/dL Albumin (3.5-5.0) g/dL Urine Color (Yellow) Urine Appearance (Clear) Urine pH (4.6-8.0) Ur Specific [place] (1.005-1.030) Urine Protein (Negative) Urine Glucose (UA) (Negative) mg/dL Urine Ketones (Negative) Urine Blood (Negative) Urine Nitrite (Negative) Urine Bilirubin (Negative) Urine Urobilinogen (0.2) mg/dL Ur Leukocyte Esterase (Negative) U Hyaline Cast (Auto) (0-2) /LPF Urine Microscopic RBC (0-5) /HPF Urine Microscopic WBC (0-5) /HPF Ur Epithelial Cells (None Seen) /HPF Urine Bacteria (None Seen) /HPF Urine Culture Reflexed (NO) Monoscreen (NEGATIVE) Influenza Type A Ag (NEGATIVE) Influenza Type B Ag (NEGATIVE) RSV (PCR) (NEGATIVE) SARS-CoV-2 (PCR) (NEGATIVE) Slides for Path Review - Radiology Impressions Radiology Exams & Impressions: Radiology Procedures Category Date Time Status ABDOMEN AND PELVIS W/0 CONTRAS [CT] Stat Exams 12/15/23 16:08 Completed CHEST 1 VIEW (PORTABLE) Stat Exams 12/15/23 15:41 Completed Assessment/Plan (1) UTI (urinary tract infection) Current Visit: Yes Status: Acute Assessment & Plan: ANTIBIOTICS AND STEROIDS Ceftriaxone ASSESSMENT 1. Urinary Tract Infection 2. Hypotension 3. Non-Anion Gap Metabolic Acidosis 4. Hyperbilirubinemia 5. Cholelithiasis 6. Umbilical Hernia 7. Hiatal Hernia 8. Hypertension 9. Hyperlipidemia 10. Type II Diabetes Mellitus 11. Coronary Artery Disease s/p PCI 12. Obstructive Sleep Apnea PLAN 1. Ceftriaxone; UCx and BCx pending 2. Fluids - BP with MAPs just above 65 3. Hold antihypertensives 4. CT A/P with chronic issues 5. Continue oral diabetic regimen Lovenox The entirety of this encounter was done via telemedicine with audio and visual. Consent was obtained for a telemedicine encounter. Khris Dotson MD Pulmonary and Critical Care Medicine Code(s): N39.0 - URINARY TRACT INFECTION, SITE NOT SPECIFIED Telemedicine Encounter - Telemedicine Encounter Telemedicine Encounter: "The entirety of this encounter was performed via Telemedicine" This visit was performed using real-time audio and video connection between my location and thepatients locationwith the assistance of a surrogateat the patients location. Written or verbal consent was obtained from the patient/guardian to perform this visit [facility]. Any patient questions regarding the telemedicine interaction were answered.
[2023-12-16] MEDS: Tums EX 750 MG PO SCH (01:05)
[2023-12-16] MEDS: Lactated Ringers 1,000 ML IV SCH (01:06)
[2023-12-16 06:12] LABS: Absolute Neutrophil Ct (ANC) 5.53 x10^3/uL (1.78-5.38); BASOPHIL % 0.3 % (0.2-1.2); Basophil (Absolute #) 0.02 x10^3/uL (0.01-0.08); Eosinophil % 0.3 % (0.8-7.0); Eosinophil (Absolute #) 0.02 x10^3/uL (0.04-0.54); Hematocrit 33.8 % (40.1-51.0); Hemoglobin 11.5 g/dL (13.7-17.5); IMMATURE GRAN # 0.02 x10^3u/L (0.001-0.031); IMMATURE GRAN % 0.3 % (0.001-0.429); Lymphocyte (Absolute #) 0.73 x10^3/uL (1.32-3.57); Lymphocytes % 10.1 % (21.8-53.1); Mean Cell Volume 89.4 fL (79.0-92.2); Mean Corpuscular Hemoglobin 30.4 pg (25.7-32.2); Mean Platelet Volume 9.1 fL (9.4-12.4); Monocyte (Absolute #) 0.91 x10^3/uL (0.30-0.82); Monocytes % 12.6 % (5.3-12.2); Neutrophil % 76.4 % (34.0-67.9); Platelet Count 89 x10^3/uL (163-337); Red Blood Count 3.78 x10^6/uL (4.63-6.08); Red Cell Distribution Width 12.8 % (11.6-14.4); White Blood Count 7.2 x10^3/uL (4.23-9.07)
[2023-12-16 06:58] LABS: ALBUMIN 3.6 g/dL (3.5-5.0); ANION GAP 13.6 MEQ/L (5-15); BILIRUBIN,TOTAL 1.7 mg/dL (0.2-1.3); Calcium 8.9 mg/dL (8.4-10.2); Creatinine 1 0.81 mg/dL (0.66-1.25); EST GLOMERULAR FILTRATION RATE 99.7 ML/MIN; Potassium 3.5 mmol/L (3.5-5.1); Total Protein 6.3 g/dL (6.3-8.2)
[2023-12-16] MEDS ORDERED: HUMULIN R SQ PRN (07:38)
[2023-12-16] MEDS ORDERED: AMARYL 4 MG PO SCH (08:00)
[2023-12-16] MEDS ORDERED: HUMALOG SQ PRN (08:03)
[2023-12-16] MEDS: ROCEPHIN 2 GM/100 ML NACL 2 GM/100 ML IVPB IV SCH (09:46)
[2023-12-16] MEDS: Ditropan 5 MG PO SCH (09:47)
[2023-12-16] MEDS: PLAVIX Tablet PO SCH (09:47)
[2023-12-16] MEDS: ECOTRIN 81 MG PO SCH (09:47)
[2023-12-16] MEDS: ZOCOR 20MG PO SCH (09:47)
[2023-12-16] MEDS: Zetia 10 MG PO SCH (09:47)
[2023-12-16] MEDS ORDERED: ROCEPHIN 1 GM / 100 ML NaCl 1 GM/100 ML IVPB IV SCH (10:00)
[2023-12-16] MEDS ORDERED: ENOXAPARIN SODIUM SQ SCH (10:00)
[2023-12-16] MEDS ORDERED: DABIGATRAN ETEXILATE MESYLATE PO SCH (10:00)
[2023-12-16] MEDS ORDERED: Glucophage XR 500 MG PO SCH (10:00)
--- NOTE | 2023-12-16 12:01 | PCM.NOTE ---
Mr. Espinoza is a 63 year gentleman with CAD s/p PCI, HTN, HLD, DM2, and ROLAND admitted with urosepsis after experiencing dysuria, rigors, chills, and dizziness x three days with rigors, chills, and dizziness the last day. Upon arrival to [place], his laboratory data was remarkable for a UTI, HCO3 19, and an elevated bilirubin, while his imaging revealed chronic issues - umbilical hernia, hiatal hernia, and worsening cholelithiasis. Additionally, he was found to have soft blood pressures, but MAPs have been greater than 65. Patient started on ceftriaxone in ED. Blood and urine cultures showing gram - ID - plan to follow cultures - will change abx to zosyn. Patient also to get bladder scan with PVR. Consider US when available.
[2023-12-16] MEDS: PIPERACILLIN/TAZOBACTAM 3.375 GM in Sodium Chloride 100ML MINI-BAG PLUS 100 ML IV SCH (12:17)
[2023-12-16] MEDS: Klor Con PO SCH (16:06)
[2023-12-16] MEDS: Zofran 4 MG/2 ML VIAL IV PRN (16:21)
[2023-12-17 06:32] LABS: Hematocrit 32.9 % (40.1-51.0); Hemoglobin 11.4 g/dL (13.7-17.5); Mean Cell Volume 88.7 fL (79.0-92.2); Mean Corpuscular Hemoglobin 30.7 pg (25.7-32.2); Mean Corpuscular Hgb Concent. 34.7 g/dL (32.3-36.5); Mean Platelet Volume 9.9 fL (9.4-12.4); Platelet Count 93 x10^3/uL (163-337); Red Blood Count 3.71 x10^6/uL (4.63-6.08); Red Cell Distribution Width 12.5 % (11.6-14.4)
[2023-12-17 06:54] LABS: ALBUMIN 3.5 g/dL (3.5-5.0); ANION GAP 12.8 MEQ/L (5-15); BILIRUBIN,TOTAL 1.2 mg/dL (0.2-1.3); Calcium 8.4 mg/dL (8.4-10.2); Creatinine 1 0.76 mg/dL (0.66-1.25); EST GLOMERULAR FILTRATION RATE 101.6 ML/MIN; Potassium 3.5 mmol/L (3.5-5.1); Total Protein 6.4 g/dL (6.3-8.2)
[2023-12-17] MEDS ORDERED: Sodium Chloride 0.9% 1000 ML 1,000 ML ONE (07:41)
[2023-12-17] MEDS ORDERED: LOPRESSOR INJECTION IV ONE (07:45)
[2023-12-17] MEDS ORDERED: Sodium Chloride 0.9% 1000 ML 1,000 ML IV SCH (07:45)
[2023-12-17] MEDS: LOPRESSOR INJECTION IV ONE (07:49)
[2023-12-17] MEDS: Lanoxin 0.5 MG/2 ML INJECTION IV ONE (08:40)
--- NOTE | 2023-12-17 08:55 | XRAY ---
CLINICAL HISTORY: shortness of breath COMPARISON: none. TECHNIQUE: X-ray of the chest, AP portable view. FINDINGS: Prominant bronchovascuilar markings bilatearlly. Patchy opacity seen retrocardiac and in the left lower lung zone with obliteration of left costophrenic angle, suggesting mild pleural effusion with possible related infiltrates. Normal configuration of the mediastinum. The dav are normal in size and position. The cardiac size is mildly enlarged. The bony thorax is unremarkable. The right costophrenic and cardiophrenic angles are clear. IMPRESSION: 1. Prominant bronchovascuilar markings bilaterally may be due to pulmonary congestion or an inflammatory process. 2. Patchy opacity seen retrocardiac and in the left lower lung zone with obliteration of left costophrenic angle, suggesting mild pleural effusion with possible related infiltrates. 3. Correlate clinically. [facility] ER was called at [phone] at 7:45 AM MANAGING [employer]NER, 12/17/[address] Obrien was informed regarding the presence of Important Medical Findings in the report. Electronically Signed by: Saritha Delacruz MD. (12/17/2023 08:50:23 EDT)
[2023-12-17 09:49] LABS: INFLUENZA A NEGATIVE (NEGATIVE); INFLUENZA B NEGATIVE (NEGATIVE); RESPIRATORY SYNCTIAL VIRUS NEGATIVE (NEGATIVE); SARS-CoV-2 Xpert Express NEGATIVE (NEGATIVE)
[2023-12-17] MEDS ORDERED: ENOXAPARIN SODIUM SQ SCH (10:00)
[2023-12-17] MEDS: Klor Con PO SCH (10:54)
[2023-12-17] MEDS: Docusate Sodium 100 MG PO SCH (10:56)
[2023-12-17] MEDS: Pepcid 20 MG PO SCH (11:23)
[2023-12-17 12:05] LABS: Slide Review YES
[2023-12-17] MEDS ORDERED: Compazine 10 MG/2 ML IM PRN (12:12)
--- NOTE | 2023-12-17 14:12 | PCM.NOTE ---
Date and Time: 12/17/23 1403 Subjective Assessment: Mr. Espinoza is a 63 year gentleman with CAD s/p PCI, HTN, HLD, DM2, and ROLAND admitted with urosepsis after experiencing dysuria, rigors, chills, and dizziness x three days with rigors, chills, and dizziness the last day. Upon arrival to [facility], his laboratory data was remarkable for a UTI, HCO3 19, and an elevated bilirubin, while his imaging revealed chronic issues - umbilical hernia, hiatal hernia, and worsening cholelithiasis. Additionally, he was found to have soft blood pressures, but MAPs have been greater than 65. Urine cultures with ECOLI- with sensitivity to ceftriaxone. Blood showing gram - ID x 1 - may reflect contamination - plan to follow cultures - Antimicrobial History : Ceftriaxone - Zosyn. Currently being treated with Ceftriaxone. No residual on PVR. 12/17/23 patient with AFIB RVR- he was treated with metoprolol 5mg IVP and digoxin 0.5mg x1. Rhythm converted to NS. HR controlled. No chest pain reported. Records reviewed -Echo from 2019 showing EF of 40%. Patient does follow with Dr. Penn as OP. Cardiology consulted as this is new onset - most likely resultant from sepsis, recs pending. Hunter-Vasc score of 2. Patient was febrile overnight. Dysuria has improved today. Cardiology consulted with recs to continue with his home coreg 3.25mg BID and eliquis 5mg bid. Hold lasix for volume overload noted on CXR. Echo ordered and pending. Hold ASA due to starting DOAC. <EDIN ANDREW - Last Filed: 12/17/23 17:09> Date and Time: 12/17/232125 <AMILCAR HASSAN - Last Filed: 12/17/23 21:33> - Review of Systems Constitutional: Fever, Fatigue, Weakness Eyes: No Symptoms Ears, Nose, & Throat: No Symptoms Respiratory: Cough, Short Of Breath Cardiac: No Symptoms Abdominal/Gastrointestinal: Nausea, Vomiting, Constipation Genitourinary Symptoms: Dysuria Musculoskeletal: No Symptoms Skin: No Symptoms Neurological: No Symptoms Psychological: No Symptoms Endocrine: No Symptoms Hematologic/Lymphatic: No Symptoms Immunological/Allergic: No Symptoms <EDIN ANDREW - Last Filed: 12/17/23 17:09> Objective Exam General Appearance: no apparent distress Neurologic Exam: alert, oriented x 3, cooperative Skin Exam: normal color Eye Exam: PERRL Ears, Nose, Throat Exam: normal ENT inspection Neck Exam: normal inspection Respiratory Exam: normal breath sounds, lungs clear Cardiovascular Exam: tachycardia, irregular Gastrointestinal/Abdomen Exam: soft, normal bowel sounds Extremity Exam: normal inspection Back Exam: normal inspection Male Genitalia Exam: deferred Rectal Exam: deferred <EDIN ANDREW - Last Filed: 12/17/23 17:09> Objective Data Vital Signs: Vital Signs - 24 hr Temp Pulse Resp BP Pulse Ox 12/17/23 12:00 98.2 F 70 18 130/75 97 12/17/23 08:53 132 H 12/17/23 08:16 99.9 F 111 H 20 125/60 92 L 12/17/23 04:00 98.6 F 67 18 102/55 92 L 12/17/23 00:00 100.1 F 64 20 100/59 93 L 12/16/23 20:00 99.8 F 63 20 108/53 96 12/16/23 18:14 99.6 F 12/16/23 16:32 102.1 F 20 94 L 12/16/23 16:12 67 118/58 Pain Assessment - Last Documented Pain Intensity 0 Pain Scale Used 0-10 Pain Scale Intake and Output: Intake & Output 12/15/23 12/16/23 12/17/23 12/18/23 11:59 11:59 11:59 11:59 Intake Total 1554 3470 Output Total 650 Balance 1554 2820 Weight 113.8 kg Lab Results: Lab Results-Last 24 Hours 12/16/23 12/16/23 12/17/23 Range/Units 16:35 21:34 06:20 WBC 5.0 (4.23-9.07) x10^3/uL RBC 3.71 L (4.63-6.08) x10^6/uL Hgb 11.4 L (13.7-17.5) g/dL Hct 32.9 L (40.1-51.0) % MCV 88.7 (79.0-92.2) fL MCH 30.7 (25.7-32.2) pg MCHC 34.7 (32.3-36.5) g/dL RDW 12.5 (11.6-14.4) % Plt Count 93 L (163-337) x10^3/uL MPV 9.9 (9.4-12.4) fL Sodium (135-145) mmol/L Potassium (3.5-5.1) mmol/L Chloride (98-107) mmol/L Carbon Dioxide (22-30) mmol/L Anion Gap (5-15) MEQ/L BUN (9-20) mg/dL Creatinine (0.66-1.25) mg/dL Estimated GFR ML/MIN Glucose (74-106) mg/dL POC Glucometer 140 H 176 H (74 to 106) mg/dL Lactic Acid (0.4-2.0) Calcium (8.4-10.2) mg/dL Magnesium (1.6-2.3) mg/dL Total Bilirubin (0.2-1.3) mg/dL AST (17-59) U/L ALT (0-50) U/L Alkaline Phosphatase (38-126) U/L Troponin I (0.000-0.033) ng/mL Serum Total Protein (6.3-8.2) g/dL Albumin (3.5-5.0) g/dL Procalcitonin (0.030-0.080) ng/mL TSH 3rd Generation (0.470-4.680) mIU/L Influenza Type A Ag (NEGATIVE) Influenza Type B Ag (NEGATIVE) RSV (PCR) (NEGATIVE) SARS-CoV-2 (PCR) (NEGATIVE) Slides for Path Review YES 12/17/23 12/17/23 12/17/23 Range/Units 06:20 06:20 07:26 WBC (4.23-9.07) x10^3/uL RBC (4.63-6.08) x10^6/uL Hgb (13.7-17.5) g/dL Hct (40.1-51.0) % MCV (79.0-92.2) fL MCH (25.7-32.2) pg MCHC (32.3-36.5) g/dL RDW (11.6-14.4) % Plt Count (163-337) x10^3/uL MPV (9.4-12.4) fL Sodium 136 (135-145) mmol/L Potassium 3.5 (3.5-5.1) mmol/L Chloride 106 (98-107) mmol/L Carbon Dioxide 21 L (22-30) mmol/L Anion Gap 12.8 (5-15) MEQ/L BUN 20 (9-20) mg/dL Creatinine 0.76 (0.66-1.25) mg/dL Estimated GFR 101.6 ML/MIN Glucose 137 H (74-106) mg/dL POC Glucometer 136 H (74 to 106) mg/dL Lactic Acid (0.4-2.0) Calcium 8.4 (8.4-10.2) mg/dL Magnesium 2.0 (1.6-2.3) mg/dL Total Bilirubin 1.20 (0.2-1.3) mg/dL AST 21 (17-59) U/L ALT 15 (0-50) U/L Alkaline Phosphatase 69 (38-126) U/L Troponin I (0.000-0.033) ng/mL Serum Total Protein 6.4 (6.3-8.2) g/dL Albumin 3.5 (3.5-5.0) g/dL Procalcitonin (0.030-0.080) ng/mL TSH 3rd Generation (0.470-4.680) mIU/L Influenza Type A Ag (NEGATIVE) Influenza Type B Ag (NEGATIVE) RSV (PCR) (NEGATIVE) SARS-CoV-2 (PCR) (NEGATIVE) Slides for Path Review 12/17/23 12/17/23 12/17/23 Range/Units 08:55 09:05 09:05 WBC (4.23-9.07) x10^3/uL RBC (4.63-6.08) x10^6/uL Hgb (13.7-17.5) g/dL Hct (40.1-51.0) % MCV (79.0-92.2) fL MCH (25.7-32.2) pg MCHC (32.3-36.5) g/dL RDW (11.6-14.4) % Plt Count (163-337) x10^3/uL MPV (9.4-12.4) fL Sodium (135-145) mmol/L Potassium (3.5-5.1) mmol/L Chloride (98-107) mmol/L Carbon Dioxide (22-30) mmol/L Anion Gap (5-15) MEQ/L BUN (9-20) mg/dL Creatinine (0.66-1.25) mg/dL Estimated GFR ML/MIN Glucose (74-106) mg/dL POC Glucometer (74 to 106) mg/dL Lactic Acid 1.1 (0.4-2.0) Calcium (8.4-10.2) mg/dL Magnesium (1.6-2.3) mg/dL Total Bilirubin (0.2-1.3) mg/dL AST (17-59) U/L ALT (0-50) U/L Alkaline Phosphatase (38-126) U/L Troponin I (0.000-0.033) ng/mL Serum Total Protein (6.3-8.2) g/dL Albumin (3.5-5.0) g/dL Procalcitonin 0.752 H (0.030-0.080) ng/mL TSH 3rd Generation 2.777 (0.470-4.680) mIU/L Influenza Type A Ag (NEGATIVE) Influenza Type B Ag (NEGATIVE) RSV (PCR) (NEGATIVE) SARS-CoV-2 (PCR) (NEGATIVE) Slides for Path Review 12/17/23 12/17/23 12/17/23 Range/Units 09:05 09:06 12:01 WBC (4.23-9.07) x10^3/uL RBC (4.63-6.08) x10^6/uL Hgb (13.7-17.5) g/dL Hct (40.1-51.0) % MCV (79.0-92.2) fL MCH (25.7-32.2) pg MCHC (32.3-36.5) g/dL RDW (11.6-14.4) % Plt Count (163-337) x10^3/uL MPV (9.4-12.4) fL Sodium (135-145) mmol/L Potassium (3.5-5.1) mmol/L Chloride (98-107) mmol/L Carbon Dioxide (22-30) mmol/L Anion Gap (5-15) MEQ/L BUN (9-20) mg/dL Creatinine (0.66-1.25) mg/dL Estimated GFR ML/MIN Glucose (74-106) mg/dL POC Glucometer 124 H (74 to 106) mg/dL Lactic Acid (0.4-2.0) Calcium (8.4-10.2) mg/dL Magnesium (1.6-2.3) mg/dL Total Bilirubin (0.2-1.3) mg/dL AST (17-59) U/L ALT (0-50) U/L Alkaline Phosphatase (38-126) U/L Troponin I < 0.012 (0.000-0.033) ng/mL Serum Total Protein (6.3-8.2) g/dL Albumin (3.5-5.0) g/dL Procalcitonin (0.030-0.080) ng/mL TSH 3rd Generation (0.470-4.680) mIU/L Influenza Type A Ag NEGATIVE (NEGATIVE) Influenza Type B Ag NEGATIVE (NEGATIVE) RSV (PCR) NEGATIVE (NEGATIVE) SARS-CoV-2 (PCR) NEGATIVE (NEGATIVE) Slides for Path Review Radiology Exams: Radiology Procedures Category Date Time Status ABDOMEN AND PELVIS W/0 CONTRAS [CT] Stat Exams 12/15/23 16:08 Completed CHEST 1 VIEW (PORTABLE) Stat Exams 12/15/23 15:41 Completed CHEST 1 VIEW (PORTABLE) Stat Exams 12/17/23 08:07 Completed <EDIN ANDREW - Last Filed: 12/17/23 17:09> Vital Signs: Vital Signs - 24 hr Temp Pulse Resp BP Pulse Ox 12/17/23 20:15 103.3 F 12/17/23 17:05 97 12/17/23 16:00 73 12/17/23 15:47 101.8 F 77 20 127/47 97 12/17/23 12:00 98.2 F 71 18 130/75 97 12/17/23 08:53 132 H 12/17/23 08:16 99.9 F 111 H 20 125/60 92 L 12/17/23 04:00 98.6 F 67 18 102/55 92 L 12/17/23 00:00 100.1 F 64 20 100/59 93 L Pain Assessment - Last Documented Pain Intensity 0 Pain Scale Used 0-10 Pain Scale Intake and Output: Intake & Output 12/15/23 12/16/23 12/17/23 12/18/23 11:59 11:59 11:59 11:59 Intake Total 1554 3470 255 Output Total 650 Balance 1554 2820 255 Weight 113.8 kg Lab Results: Lab Results-Last 24 Hours 12/16/23 12/17/23 12/17/23 Range/Units 21:34 06:20 06:20 WBC 5.0 (4.23-9.07) x10^3/uL RBC 3.71 L (4.63-6.08) x10^6/uL Hgb 11.4 L (13.7-17.5) g/dL Hct 32.9 L (40.1-51.0) % MCV 88.7 (79.0-92.2) fL MCH 30.7 (25.7-32.2) pg MCHC 34.7 (32.3-36.5) g/dL RDW 12.5 (11.6-14.4) % Plt Count 93 L (163-337) x10^3/uL MPV 9.9 (9.4-12.4) fL Sodium 136 (135-145) mmol/L Potassium 3.5 (3.5-5.1) mmol/L Chloride 106 (98-107) mmol/L Carbon Dioxide 21 L (22-30) mmol/L Anion Gap 12.8 (5-15) MEQ/L BUN 20 (9-20) mg/dL Creatinine 0.76 (0.66-1.25) mg/dL Estimated GFR 101.6 ML/MIN Glucose 137 H (74-106) mg/dL POC Glucometer 176 H (74 to 106) mg/dL Lactic Acid (0.4-2.0) Calcium 8.4 (8.4-10.2) mg/dL Magnesium (1.6-2.3) mg/dL Total Bilirubin 1.20 (0.2-1.3) mg/dL AST 21 (17-59) U/L ALT 15 (0-50) U/L Alkaline Phosphatase 69 (38-126) U/L Troponin I (0.000-0.033) ng/mL Serum Total Protein 6.4 (6.3-8.2) g/dL Albumin 3.5 (3.5-5.0) g/dL Procalcitonin (0.030-0.080) ng/mL TSH 3rd Generation (0.470-4.680) mIU/L Influenza Type A Ag (NEGATIVE) Influenza Type B Ag (NEGATIVE) RSV (PCR) (NEGATIVE) SARS-CoV-2 (PCR) (NEGATIVE) Slides for Path Review YES 12/17/23 12/17/23 12/17/23 Range/Units 06:20 07:26 08:55 WBC (4.23-9.07) x10^3/uL RBC (4.63-6.08) x10^6/uL Hgb (13.7-17.5) g/dL Hct (40.1-51.0) % MCV (79.0-92.2) fL MCH (25.7-32.2) pg MCHC (32.3-36.5) g/dL RDW (11.6-14.4) % Plt Count (163-337) x10^3/uL MPV (9.4-12.4) fL Sodium (135-145) mmol/L Potassium (3.5-5.1) mmol/L Chloride (98-107) mmol/L Carbon Dioxide (22-30) mmol/L Anion Gap (5-15) MEQ/L BUN (9-20) mg/dL Creatinine (0.66-1.25) mg/dL Estimated GFR ML/MIN Glucose (74-106) mg/dL POC Glucometer 136 H (74 to 106) mg/dL Lactic Acid 1.1 (0.4-2.0) Calcium (8.4-10.2) mg/dL Magnesium 2.0 (1.6-2.3) mg/dL Total Bilirubin (0.2-1.3) mg/dL AST (17-59) U/L ALT (0-50) U/L Alkaline Phosphatase (38-126) U/L Troponin I (0.000-0.033) ng/mL Serum Total Protein (6.3-8.2) g/dL Albumin (3.5-5.0) g/dL Procalcitonin (0.030-0.080) ng/mL TSH 3rd Generation (0.470-4.680) mIU/L Influenza Type A Ag (NEGATIVE) Influenza Type B Ag (NEGATIVE) RSV (PCR) (NEGATIVE) SARS-CoV-2 (PCR) (NEGATIVE) Slides for Path Review 12/17/23 12/17/23 12/17/23 Range/Units 09:05 09:05 09:05 WBC (4.23-9.07) x10^3/uL RBC (4.63-6.08) x10^6/uL Hgb (13.7-17.5) g/dL Hct (40.1-51.0) % MCV (79.0-92.2) fL MCH (25.7-32.2) pg MCHC (32.3-36.5) g/dL RDW (11.6-14.4) % Plt Count (163-337) x10^3/uL MPV (9.4-12.4) fL Sodium (135-145) mmol/L Potassium (3.5-5.1) mmol/L Chloride (98-107) mmol/L Carbon Dioxide (22-30) mmol/L Anion Gap (5-15) MEQ/L BUN (9-20) mg/dL Creatinine (0.66-1.25) mg/dL Estimated GFR ML/MIN Glucose (74-106) mg/dL POC Glucometer (74 to 106) mg/dL Lactic Acid (0.4-2.0) Calcium (8.4-10.2) mg/dL Magnesium (1.6-2.3) mg/dL Total Bilirubin (0.2-1.3) mg/dL AST (17-59) U/L ALT (0-50) U/L Alkaline Phosphatase (38-126) U/L Troponin I < 0.012 (0.000-0.033) ng/mL Serum Total Protein (6.3-8.2) g/dL Albumin (3.5-5.0) g/dL Procalcitonin 0.752 H (0.030-0.080) ng/mL TSH 3rd Generation 2.777 (0.470-4.680) mIU/L Influenza Type A Ag (NEGATIVE) Influenza Type B Ag (NEGATIVE) RSV (PCR) (NEGATIVE) SARS-CoV-2 (PCR) (NEGATIVE) Slides for Path Review 12/17/23 12/17/23 12/17/23 Range/Units 09:06 12:01 16:22 WBC (4.23-9.07) x10^3/uL RBC (4.63-6.08) x10^6/uL Hgb (13.7-17.5) g/dL Hct (40.1-51.0) % MCV (79.0-92.2) fL MCH (25.7-32.2) pg MCHC (32.3-36.5) g/dL RDW (11.6-14.4) % Plt Count (163-337) x10^3/uL MPV (9.4-12.4) fL Sodium (135-145) mmol/L Potassium (3.5-5.1) mmol/L Chloride (98-107) mmol/L Carbon Dioxide (22-30) mmol/L Anion Gap (5-15) MEQ/L BUN (9-20) mg/dL Creatinine (0.66-1.25) mg/dL Estimated GFR ML/MIN Glucose (74-106) mg/dL POC Glucometer 124 H 108 H (74 to 106) mg/dL Lactic Acid (0.4-2.0) Calcium (8.4-10.2) mg/dL Magnesium (1.6-2.3) mg/dL Total Bilirubin (0.2-1.3) mg/dL AST (17-59) U/L ALT (0-50) U/L Alkaline Phosphatase (38-126) U/L Troponin I (0.000-0.033) ng/mL Serum Total Protein (6.3-8.2) g/dL Albumin (3.5-5.0) g/dL Procalcitonin (0.030-0.080) ng/mL TSH 3rd Generation (0.470-4.680) mIU/L Influenza Type A Ag NEGATIVE (NEGATIVE) Influenza Type B Ag NEGATIVE (NEGATIVE) RSV (PCR) NEGATIVE (NEGATIVE) SARS-CoV-2 (PCR) NEGATIVE (NEGATIVE) Slides for Path Review Radiology Exams: Radiology Procedures Category Date Time Status CHEST 1 VIEW (PORTABLE) Stat Exams 12/17/23 08:07 Completed ECHO W/2D AND DOPPLER [US] Routine Exams 12/18/23 08:00 Ordered Multi-Disciplinary Progress Notes: Multi-Disciplinary Progress Notes 12/17/23 14:39 Pharmacy Note by Taco Julian Please be aware of possible drug interaction with K-Dur and Ditropan. Tablets may increase the risk of stomach ulcers. Will change to K-lyte liquid to decrease risk. Initialized on 12/17/23 14:39 - END OF NOTE <AMILCAR HASSAN - Last Filed: 12/17/23 21:33> Assessment/Plan (1) Sepsis due to gram-negative UTI Current Visit: Yes Status: Acute Assessment & Plan: -Ucult with with ECOLI -Antimicrobial history: Zosyn (12/15 -12/16) Ceftriaxone ( 810 - resumed 12/16) -Blood cultures x 1 with gram - ID - pending final -LA WNL -Procal at 0.752 -CXR 12/15/[address] proven lingula pleural-parenchymal thickening/scarring. Remaining heart and lungs unremarkable. -Repeat CXR 12/17/23 demonstrates rominant bronchovascuilar markings bilaterally may be due to pulmonary congestion or an inflammatory process. Patchy opacity seen retrocardiac and in the left lower lung zone with obliteration of left costophrenic angle, suggesting mild pleural effusion with possible related infiltrates -COVID resp viral panel negative -CT abdomen with new nonobstructing left renal micro-calculus and cyst. Worsening cholelithiasis. Chronic findings including hiatal hernia, colonic diverticulosis arteriosclerotic disease, umbilical hernia, and chronic bony findings. Code(s): A41.50 - GRAM-NEGATIVE SEPSIS, UNSPECIFIED; N39.0 - URINARY TRACT INFECTION, SITE NOT SPECIFIED (2) Diabetes mellitus Current Visit: Yes Status: Acute Assessment & Plan: -ADA diet -SSI -A1c 7.08 Code(s): E11.9 - TYPE 2 DIABETES MELLITUS WITHOUT COMPLICATIONS (3) Presence of stent in coronary artery in patient with coronary artery disease Current Visit: Yes Status: Acute Assessment & Plan: -noted - continue ASA/Plavix Code(s): I25.10 - ATHSCL HEART DISEASE OF [place] CORONARY ARTERY W/O ANG PCTRS; Z95.5 - PRESENCE OF CORONARY ANGIOPLASTY IMPLANT AND GRAFT (4) HTN (hypertension) Current Visit: Yes Status: Acute Assessment & Plan: -stable Code(s): I10 - ESSENTIAL (PRIMARY) HYPERTENSION (5) ROLAND (obstructive sleep apnea) Current Visit: Yes Status: Acute Assessment & Plan: -note - CPAP Code(s): G47.33 - OBSTRUCTIVE SLEEP APNEA (ADULT) (PEDIATRIC) (6) New onset a-fib Current Visit: Yes Status: Acute Assessment & Plan: -Most likely secondary to sepsis -CXR 12/17/23 demonstrates rominant bronchovascuilar markings bilaterally may be due to pulmonary congestion or an inflammatory process. Patchy opacity seen retrocardiac and in the left lower lung zone with obliteration of left costophrenic angle, suggesting mild pleural effusion with possible related infiltrates -EKG now in NS after metoprolol 5mg IV and digoxin 0.5mg -Trops x 1 negative -TSH WNL -Cardiology consulted - Cardiology consulted with recs to continue with his home coreg 3.25mg BID and eliquis 5mg bid. Hold lasix for volume overload noted on CXR. Echo ordered and pending. Hold ASA due to starting DOAC. Code(s): I48.91 - UNSPECIFIED ATRIAL FIBRILLATION (7) Cholelithiasis Current Visit: No Status: Acute Assessment & Plan: - Chronic issue - CT abdomen with new nonobstructing left renal micro-calculus and cyst. Worsening cholelithiasis. Chronic findings including hiatal hernia, colonic diverticulosis arteriosclerotic disease, umbilical hernia, and chronic bony findings - follow up OP VTE: plavix/ASA PPI: protonix Dispo 2-3 days <EDIN ANDREW - Last Filed: 12/17/23 17:09> FE Encounter - FE Encounter Attestation FE Encounter Attestation: "GillianpersonalcuortneyeenCORIE Lee andhavediscussed pertinent aspects of their care with Edin Leary agree with the history, physical exam (any modifications based on my personal exam will be noted below), assessment, and plan as outlined in original note. Please see immediately below for my summary of findings and additional assessment and plan along with any meaningful corrections/explanations to the Subjective/Objective portions of the FE note will be noted." My portion of the encounter took place via telemedicine. -Patient currently being treated for E coli UTI and bacteremia. Had new onset afib with RVR this morning. Converted to NSR with IV metoprolol and digoxin. Cardiology consulted, recommend continuing coreg for rate control and adding eliquis (stop ASA, continue plavix). Appreciate recs. Fevers improving, redraw blood cultures today. Deescalate from zosyn to ceftriaxone given culture results. <AMILCAR HASSAN - Last Filed: 12/17/23 21:33>
[2023-12-17] MEDS: Compazine 10 MG/2 ML IV PRN (15:34)
[2023-12-17] MEDS: ROCEPHIN 2 GM/100 ML NACL 2 GM/100 ML IVPB IV SCH (15:40)
[2023-12-17] MEDS ORDERED: Xylocaine-Mpf 2% 5 Ml Vial ONE (15:42)
--- NOTE | 2023-12-17 16:41 | PCM.CONS ---
History of Present Illness - Date of Consult Date of Encounter: 12/17/23 Consulting Director Of Strategic Sourcing: FAUSTO AHN MD Requesting Provider: Attending Provider: WILLY RAMSEY MD Primary Care Provider: PCP: MAGDI HILTON Consent was: Given for this tele-med encounter - Consult Narrative Reason for Consult: Atrial fibrillation HPI: 63 year old male with PMHX of CAD s/p PCI, hyperlipidemia, hypertension, DM, and ROLAND admitted with chills, dysuria, and weakness. Patient was diagnosed with an urinary tract infection and started on IV antibiotics. Patient noted to have atrial fibrillation with tachycardia this am. Patient denies any ledy chest pain, palpitations, or shortness of breath. He was given IV metoprolol and digoxin and converted back to normal sinus rhythm. Patient denies any prior history of atrial fibrillation. He also denies taking pradaxa. NO history of falls recently. No bleeding issues. Patient had PCI in the past, but no recent chest pain. cc:: The requesting physician will be sent a copy of the consult. Review of Systems - Review of Systems All systems: as per HPI - Past Medical History Past Medical History: Yes Neurological History: No Pertinent History ENT History: No Pertinent History Cardiac History: Coronary Artery Disease, High Cholesterol, Hypertension Respiratory History: Sleep Apnea, Other Endocrine Medical History: Diabetes Type II Musculoskelatal History: No Pertinent History GI Medical History: GERD, Hernia History: Other Pyscho-Social History: No Pertinent History Male Reproductive Disorders: No Pertinent History Comment: takes flomax, uses autopap breathing machine at night, 1 stent - Past Surgical History Past Surgical History: Yes Neuro Surgical History: No Pertinent History Cardiac History: Cardiac Catheterization, Cardiac Stent Respiratory Surgery: No Pertinent History GI Surgical History: No Pertinent History Genitourinary Surgical Hx: No Pertinent History Musculskeletal Surgical Hx: No Pertinent History Male Surgical History: No Pertinent History Other Surgical History: Director Of Strategic Sourcing: Dr. Penn Significant Family History: no pertinent family hx - Social History Smoking Status: Never smoker Alcohol: Rarely Drug Use: none - Social Determinants of Health Will the patient participate in the screening: Yes Do you worry about a steady place to live?: No Do you have any problems with any of the following?: No known problems In the past 12 months,have you had to go without utilities?: No Have you or anyone in your house had to go without enough: No Transportation Issues: No Has anyone in your support network made you feel unsafe?: No Does the patient want assistance with any of the above?: No Medications & Allergies Home Medications: Home Medication List Tamsulosin HCl 0.4 mg [Flomax 0.4 MG] 0.4 mg PO DAILY #7 cap 02/18/15 [Rx Confirmed 12/15/23] Aspirin 81 mg PO DAILY 12/02/19 [History Confirmed 12/15/23] Ezetimibe 10 mg [Zetia 10 MG] 10 mg PO DAILY 12/02/19 [History Confirmed 12/15/23] Glimepiride 4 mg [Amaryl 4 mg] 4 mg PO DAILY 12/02/19 [History Confirmed 12/15/23] Carvedilol 3.125 mg [Coreg 3.125 MG] 3.125 mg PO DAILY 09/23/20 [History Confirmed 12/15/23] Clopidogrel Bisulfate [PLAVIX Tablet] 75 mg PO DAILY 09/23/20 [History Confirmed 12/15/23] Rosuvastatin Calcium [Crestor] 40 mg PO DAILY 09/23/20 [History Confirmed 12/15/23] Fesoterodine Fumarate [Toviaz] 4 mg PO DAILY 12/15/23 [History Confirmed 12/15/23] Metformin HCl [Metformin HCl ER] 750 mg PO DAILY 12/15/23 [History Confirmed 12/15/23] Empagliflozin [Jardiance] 10 mg PO DAILY 12/16/23 [History Confirmed 12/16/23] Allergies/Adverse Reactions: Allergies Allergy/AdvReac Type Severity Reaction Status Date / Time No Known Drug Allergies Allergy Verified 12/15/23 20:47 Exam - Vitals Vital Signs: Vital Signs - 24 hr Temp Pulse Resp BP Pulse Ox 12/17/23 15:47 101.8 F 77 20 127/47 97 12/17/23 12:00 98.2 F 71 18 130/75 97 12/17/23 08:53 132 H 12/17/23 08:16 99.9 F 111 H 20 125/60 92 L 12/17/23 04:00 98.6 F 67 18 102/55 92 L 12/17/23 00:00 100.1 F 64 20 100/59 93 L 12/16/23 20:00 99.8 F 63 20 108/53 96 12/16/23 18:14 99.6 F General:: alert and oriented x 4 HEENT: PERRLA, EOMI Cardiovascular Exam: regular rate/rhythm SpO2: 97 Results Vital Signs: Vital Signs - 24 hr Temp Pulse Resp BP Pulse Ox 12/17/23 15:47 101.8 F 77 20 127/47 97 12/17/23 12:00 98.2 F 71 18 130/75 97 12/17/23 08:53 132 H 12/17/23 08:16 99.9 F 111 H 20 125/60 92 L 12/17/23 04:00 98.6 F 67 18 102/55 92 L 12/17/23 00:00 100.1 F 64 20 100/59 93 L 12/16/23 20:00 99.8 F 63 20 108/53 96 12/16/23 18:14 99.6 F Pain Assessment - Last Documented Pain Intensity 0 Pain Scale Used 0-10 Pain Scale Intake and Output: Intake & Output 12/15/23 12/16/23 12/17/23 12/18/23 11:59 11:59 11:59 11:59 Intake Total 1554 3470 60 Output Total 650 Balance 1554 2820 60 Weight 113.8 kg LAB: I have reviewed the Labs in [employer]. Ventilator Record: 1. Prominant bronchovascuilar markings bilaterally may be due to pulmonary congestion or an inflammatory process. 2. Patchy opacity seen retrocardiac and in the left lower lung zone with obliteration of left costophrenic angle, suggesting mild pleural effusion with possible related infiltrates. Radiology Exams: Radiology Procedures Category Date Time Status ABDOMEN AND PELVIS W/0 CONTRAS [CT] Stat Exams 12/15/23 16:08 Completed CHEST 1 VIEW (PORTABLE) Stat Exams 12/15/23 15:41 Completed CHEST 1 VIEW (PORTABLE) Stat Exams 12/17/23 08:07 Completed X-ray Interpretation: report reviewed by me Multi-Disciplinary Progress Notes: Multi-Disciplinary Progress Notes 12/17/23 14:39 Pharmacy Note by Taco Julian Please be aware of possible drug interaction with K-Dur and Ditropan. Tablets may increase the risk of stomach ulcers. Will change to K-lyte liquid to decrease risk. Initialized on 12/17/23 14:39 - END OF NOTE Assessment & Plan (1) New onset a-fib Current Visit: Yes Status: Acute Assessment & Plan: New diagnosis this admission. No ledy symptoms except generalized weakness. Converted to sinus rhythm after IV metoprolol and digoxin. Heart rate 60-70s sinus rhythm. Would continue with beta-jimmie, coreg 3.25mg bid, he has previously tolerated it. Can restart and monitor BP. Patient has a CHADS score of 2 for HTN and DM. Recommend DOAC, eliquis 5mg bid for emboli prevention. Mild volume overload on CXR, but no ledy shortness of breath. Would probably hold on diuresis given low BP. Echo has been ordered. Limit IV fuids. Code(s): I48.91 - UNSPECIFIED ATRIAL FIBRILLATION (2) Presence of stent in coronary artery in patient with coronary artery disease Current Visit: Yes Status: Acute Assessment & Plan: No ledy chest pain. Continue with plavix. Would hold ASA given that we are starting DOAC. Continue with BB and statin. Code(s): I25.10 - ATHSCL HEART DISEASE OF [place] CORONARY ARTERY W/O ANG PCTRS; Z95.5 - PRESENCE OF CORONARY ANGIOPLASTY IMPLANT AND GRAFT (3) Hypotension Current Visit: Yes Status: Acute Assessment & Plan: Secondary to infection, improving. COntinue to monitor closely. Code(s): I95.9 - HYPOTENSION, UNSPECIFIED (4) ROLAND (obstructive sleep apnea) Current Visit: Yes Status: Acute Assessment & Plan: Continue with CPAP Code(s): G47.33 - OBSTRUCTIVE SLEEP APNEA (ADULT) (PEDIATRIC) - Encounter Encounter: "The entirety of this encounter was performed via Telemedicine using audio and visual "
[2023-12-17] MEDS ORDERED: Mucinex 600MG ER Tabs PO PRN (20:32)
[2023-12-17] MEDS: Robitussin-Dm Syrup PO PRN (20:39)
[2023-12-17] MEDS: Pedialyte PO SCH (20:39)
[2023-12-17] MEDS: MOTRIN 600 MG PO PRN (20:49)
[2023-12-17] MEDS: Coreg 3.125 MG PO SCH (22:18)
[2023-12-17] MEDS: ELIQUIS 2.5 MG TABLET PO SCH (22:19)
[2023-12-18] MEDS: Sodium Chloride 0.9% 1000 ML 1,000 ML IV STA (03:48)
[2023-12-18] MEDS ORDERED: Pedialyte PO PRN (07:14)
[2023-12-18 09:06] LABS: Absolute Neutrophil Ct (ANC) 2.72 x10^3/uL (1.78-5.38); BASOPHIL % 0.3 % (0.2-1.2); Basophil (Absolute #) 0.01 x10^3/uL (0.01-0.08); Eosinophil % 0.9 % (0.8-7.0); Eosinophil (Absolute #) 0.03 x10^3/uL (0.04-0.54); Hematocrit 37.1 % (40.1-51.0); Hemoglobin 12.7 g/dL (13.7-17.5); IMMATURE GRAN # 0.02 x10^3u/L (0.001-0.031); IMMATURE GRAN % 0.6 % (0.001-0.429); Lymphocyte (Absolute #) 0.31 x10^3/uL (1.32-3.57); Lymphocytes % 9.2 % (21.8-53.1); Mean Cell Volume 89.2 fL (79.0-92.2); Mean Corpuscular Hemoglobin 30.5 pg (25.7-32.2); Mean Corpuscular Hgb Concent. 34.2 g/dL (32.3-36.5); Mean Platelet Volume 8.9 fL (9.4-12.4); Monocyte (Absolute #) 0.27 x10^3/uL (0.30-0.82); Platelet Count 105 x10^3/uL (163-337); Red Blood Count 4.16 x10^6/uL (4.63-6.08); Red Cell Distribution Width 12.4 % (11.6-14.4); White Blood Count 3.4 x10^3/uL (4.23-9.07)
[2023-12-18 09:37] LABS: ANION GAP 14.2 MEQ/L (5-15); BILIRUBIN,TOTAL 1.4 mg/dL (0.2-1.3); Calcium 8.7 mg/dL (8.4-10.2); Creatinine 1 0.76 mg/dL (0.66-1.25); EST GLOMERULAR FILTRATION RATE 101.6 ML/MIN; MAGNESIUM 2.1 mg/dL (1.6-2.3); Potassium 3.6 mmol/L (3.5-5.1); Total Protein 7.2 g/dL (6.3-8.2)
[2023-12-18] MEDS ORDERED: Flomax 0.4 MG PO SCH (10:00)
[2023-12-18] MEDS ORDERED: K-LYTE PO SCH (10:00)
[2023-12-18] MEDS: AMARYL 4 MG PO SCH (10:32)
[2023-12-18] MEDS: JARDIANCE PO SCH (10:48)
[2023-12-18] MEDS: PIPERACILLIN/TAZOBACTAM 3.375 GM in Sodium Chloride 100ML MINI-BAG PLUS 100 ML IV SCH (12:36)
[2023-12-18] MEDS: Glucophage XR 500 MG PO SCH (12:43)
[2023-12-18] MEDS ORDERED: NON-FORMULARY ITEM PO SCH (13:00)
--- NOTE | 2023-12-18 15:12 | PCM.NOTE ---
Date and Time: 12/18/23 1502 Subjective Assessment: 12/18/23 Mr. Espinoza is a 63 year gentleman with CAD s/p PCI, HTN, HLD, DM2, and ROLAND. Admitted 12/14 with urosepsis after experiencing dysuria, rigors, chills, and dizziness x three days with rigors, chills, and dizziness the last day. Upon arrival to [place], his laboratory data was remarkable for a UTI, HCO3 19, and an elevated bilirubin, while his imaging revealed chronic issues - umbilical hernia, hiatal hernia, and worsening cholelithiasis. Additionally, he was found to have soft blood pressures, but MAPs have been greater than 65. Urine cultures with ECOLI- with sensitivity to ceftriaxone. Blood showing gram - ID x 1 - may reflect contamination - plan to follow cultures - Antimicrobial History: Ceftriaxone - Zosyn. No residual on PVR. 12/17/23 patient with AFIB RVR- he was treated with metoprolol 5mg IVP and digoxin 0.5mg x1. Rhythm converted to NS. On Eliquis and plavix per cardiology recs. HR controlled. No chest pain reported. Records reviewed -Echo from 2019 showing EF of 40%. Patient does follow with Dr. Penn as OP. Cardiology consulted as this is new onset - most likely resultant from sepsis, recs pending. Hunter-Vasc score of 2. Patient was febrile again overnight with temp of 103. Dysuria has improved today. Cardiology consulted with recs to continue with his home Coreg 3.25mg BID and eliquis 5mg bid, and plavix. Hold lasix for volume overload noted on CXR. Echo ordered and pending. Hold ASA due to starting DOAC. Pt concerned about taking Eliquis and plavix and would like to discuss with cardiology. 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 Pt developed fever of 103 last night again and pt reports he felt like he was dying. Antibiotics changed back to zosyn. BC x1 + for E-coli as well as Urine culture. Pt asking about having gallbladder removed and discussed that this would need to be f/u OP since he is septic. He denies CP, SOB, abd. pain, N/V/D. - Review of Systems Constitutional: Fever, Chills, Fatigue Eyes: No Symptoms Ears, Nose, & Throat: No Symptoms Respiratory: Cough, No Short Of Breath Cardiac: No Chest Pain, No Edema, No Syncope Abdominal/Gastrointestinal: No Abdominal Pain, No Nausea, No Vomiting, No Diarrhea Genitourinary Symptoms: No Dysuria Musculoskeletal: No Back Pain, No Neck Pain Skin: No Rash Neurological: No Dizziness, No Focal Weakness, No Sensory Changes Psychological: No Symptoms Endocrine: No Symptoms Hematologic/Lymphatic: No Symptoms Immunological/Allergic: No Symptoms Objective Exam General Appearance: no apparent distress, alert, obese Neurologic Exam: alert, oriented x 3, cooperative, normal mood/affect, nml cerebellar function, sensation nml, No motor deficits Skin Exam: normal color, warm, dry Eye Exam: PERRL, EOMI, eyes nml inspection Ears, Nose, Throat Exam: normal ENT inspection, pharynx normal, moist mucous membranes Neck Exam: normal inspection, non-tender, supple, full range of motion Respiratory Exam: normal breath sounds, lungs clear, No respiratory distress Cardiovascular Exam: regular rate/rhythm, normal heart sounds Gastrointestinal/Abdomen Exam: soft, No tenderness, No mass Extremity Exam: normal inspection, normal range of motion Back Exam: normal inspection, normal range of motion, No CVA tenderness, No vertebral tenderness Male Genitalia Exam: deferred Rectal Exam: deferred Objective Data Vital Signs: Vital Signs - 24 hr Temp Pulse Resp BP BP Pulse Ox 12/18/23 13:00 82 38 H 120/66 93 L 12/18/23 12:00 79 26 H 107/63 12/18/23 11:00 84 25 H 103/55 91 L 12/18/23 10:59 74 24 92 L 12/18/23 10:50 82 15 93 L 12/18/23 10:40 81 26 H 94 L 12/18/23 10:30 87 21 12/18/23 10:21 95 12/18/23 10:10 75 20 12/18/23 10:02 77 43 H 12/18/23 09:00 82 27 H 109/63 12/18/23 08:00 97.2 F 83 29 H 118/65 96 12/18/23 07:00 102/56 12/18/23 06:45 67 7 L 87/46 91 L 12/18/23 06:40 68 23 87/43 92 L 12/18/23 06:32 68 14 84/42 94 L 12/18/23 06:20 67 25 H 82/45 93 L 12/18/23 06:00 77 22 73/46 94 L 12/18/23 05:31 82 19 111/59 92 L 12/18/23 05:07 77 29 H 95/49 93 L 12/18/23 05:06 96.8 F 82 22 92 L 12/18/23 05:01 89 18 95 12/18/23 04:01 97.4 F 80 22 105/53 96 12/18/23 04:00 97.4 F 80 17 95 12/18/23 03:50 86 24 92 L 12/18/23 03:40 98.3 F 87 29 H 12/18/23 03:30 84 30 H 85 L 12/18/23 03:27 82 35 H 98 12/18/23 03:01 75 17 91/44 100 12/18/23 02:08 96.9 F 53 L 23 90/51 99 12/18/23 02:00 66 27 H 89/45 95 12/18/23 01:01 56 L 22 84/42 94 L 12/18/23 00:00 97.1 F 55 L 10 L 106/57 96 12/17/23 23:00 56 L 13 98/56 96 12/17/23 22:17 97.8 F 12/17/23 20:15 103.3 F 12/17/23 20:00 73 12/17/23 17:05 97 12/17/23 16:00 73 12/17/23 15:47 101.8 F 77 20 127/47 97 Pain Assessment - Last Documented Pain Intensity 4 Pain Scale Used 0-10 Pain Scale Intake and Output: Intake & Output 12/16/23 12/17/23 12/18/23 12/19/23 11:59 11:59 11:59 11:59 Intake Total 1554 3470 1695 360 Output Total 650 Balance 1554 2820 1695 360 Weight 113.8 kg Lab Results: Lab Results-Last 24 Hours 12/17/23 12/17/23 12/18/23 Range/Units 16:22 22:13 07:51 WBC (4.23-9.07) x10^3/uL RBC (4.63-6.08) x10^6/uL Hgb (13.7-17.5) g/dL Hct (40.1-51.0) % MCV (79.0-92.2) fL MCH (25.7-32.2) pg MCHC (32.3-36.5) g/dL RDW (11.6-14.4) % Plt Count (163-337) x10^3/uL MPV (9.4-12.4) fL Gran % (34.0-67.9) % Immature Gran % (Auto) (0.001-0.429) % Nucleat RBC Rel Count (0.00-0.2) % Eos # (Auto) (0.04-0.54) x10^3/uL Immature Gran # (Auto) (0.001-0.031) x10^3u/L Absolute Lymphs (auto) (1.32-3.57) x10^3/uL Absolute Monos (auto) (0.30-0.82) x10^3/uL Absolute Nucleated RBC (0.00-0.012) x10^3u/L Lymphocytes % (21.8-53.1) % Monocytes % (5.3-12.2) % Eosinophils % (0.8-7.0) % Basophils % (0.2-1.2) % Absolute Granulocytes (1.78-5.38) x10^3/uL Basophils # (0.01-0.08) x10^3/uL Sodium (135-145) mmol/L Potassium (3.5-5.1) mmol/L Chloride (98-107) mmol/L Carbon Dioxide (22-30) mmol/L Anion Gap (5-15) MEQ/L BUN (9-20) mg/dL Creatinine (0.66-1.25) mg/dL Estimated GFR ML/MIN Glucose (74-106) mg/dL POC Glucometer 108 H 168 H 175 H (74 to 106) mg/dL Calcium (8.4-10.2) mg/dL Magnesium (1.6-2.3) mg/dL Total Bilirubin (0.2-1.3) mg/dL AST (17-59) U/L ALT (0-50) U/L Alkaline Phosphatase (38-126) U/L Creatine Kinase (55-170) U/L Serum Total Protein (6.3-8.2) g/dL Albumin (3.5-5.0) g/dL 12/18/23 12/18/23 12/18/23 Range/Units 09:00 09:00 11:31 WBC 3.4 L (4.23-9.07) x10^3/uL RBC 4.16 L (4.63-6.08) x10^6/uL Hgb 12.7 L (13.7-17.5) g/dL Hct 37.1 L (40.1-51.0) % MCV 89.2 (79.0-92.2) fL MCH 30.5 (25.7-32.2) pg MCHC 34.2 (32.3-36.5) g/dL RDW 12.4 (11.6-14.4) % Plt Count 105 L (163-337) x10^3/uL MPV 8.9 L (9.4-12.4) fL Gran % 81.0 H (34.0-67.9) % Immature Gran % (Auto) 0.6 H (0.001-0.429) % Nucleat RBC Rel Count 0.0 (0.00-0.2) % Eos # (Auto) 0.03 L (0.04-0.54) x10^3/uL Immature Gran # (Auto) 0.02 (0.001-0.031) x10^3u/L Absolute Lymphs (auto) 0.31 L (1.32-3.57) x10^3/uL Absolute Monos (auto) 0.27 L (0.30-0.82) x10^3/uL Absolute Nucleated RBC 0.00 (0.00-0.012) x10^3u/L Lymphocytes % 9.2 L (21.8-53.1) % Monocytes % 8.0 (5.3-12.2) % Eosinophils % 0.9 (0.8-7.0) % Basophils % 0.3 (0.2-1.2) % Absolute Granulocytes 2.72 (1.78-5.38) x10^3/uL Basophils # 0.01 (0.01-0.08) x10^3/uL Sodium 137 (135-145) mmol/L Potassium 3.6 (3.5-5.1) mmol/L Chloride 103 (98-107) mmol/L Carbon Dioxide 23 (22-30) mmol/L Anion Gap 14.2 (5-15) MEQ/L BUN 18 (9-20) mg/dL Creatinine 0.76 (0.66-1.25) mg/dL Estimated GFR 101.6 ML/MIN Glucose 181 H (74-106) mg/dL POC Glucometer 215 H (74 to 106) mg/dL Calcium 8.7 (8.4-10.2) mg/dL Magnesium 2.1 (1.6-2.3) mg/dL Total Bilirubin 1.40 H (0.2-1.3) mg/dL AST 34 (17-59) U/L ALT 25 (0-50) U/L Alkaline Phosphatase 83 (38-126) U/L Creatine Kinase 84 (55-170) U/L Serum Total Protein 7.2 (6.3-8.2) g/dL Albumin 4.0 (3.5-5.0) g/dL Radiology Exams: Radiology Procedures Category Date Time Status CHEST 1 VIEW (PORTABLE) Stat Exams 12/17/23 08:07 Completed ECHO W/2D AND DOPPLER [US] Routine Exams 12/18/23 08:00 Taken Assessment/Plan (1) Sepsis due to gram-negative UTI Current Visit: Yes Status: Acute Assessment & Plan: Assessment & Plan: -Ucult with with ECOLI -Antimicrobial history: Zosyn (12/15 -12/16) Ceftriaxone ( 810 - resumed 12/16) -Blood cultures x 1 with gram - ID - pending final -LA WNL -Procal at 0.752 -CXR 12/15/[address] proven lingula pleural-parenchymal thickening/scarring. Remaining heart and lungs unremarkable. -Repeat CXR 12/17/23 demonstrates rominant bronchovascuilar markings bilaterally may be due to pulmonary congestion or an inflammatory process. Patchy opacity seen retrocardiac and in the left lower lung zone with obliteration of left costophrenic angle, suggesting mild pleural effusion with possible related infiltrates -COVID resp viral panel negative -CT abdomen with new nonobstructing left renal micro-calculus and cyst. Worsening cholelithiasis. Chronic findings including hiatal hernia, colonic diverticulosis arteriosclerotic disease, umbilical hernia, and chronic bony findings. 12/17 - temp 103 last night - changed antibiotics to Zosyn - BC x1 and UC both + for E-coli - repeat CXR - resp increased Code(s): A41.50 - GRAM-NEGATIVE SEPSIS, UNSPECIFIED; N39.0 - URINARY TRACT INFECTION, SITE NOT SPECIFIED (2) Diabetes mellitus Current Visit: Yes Status: Chronic Assessment & Plan: -ADA diet -SSI -A1c 7.08- controlled Code(s): E11.9 - TYPE 2 DIABETES MELLITUS WITHOUT COMPLICATIONS (3) New onset a-fib Current Visit: Yes Status: Acute Assessment & Plan: -Most likely secondary to sepsis -CXR 12/17/23 demonstrates rominant bronchovascuilar markings bilaterally may be due to pulmonary congestion or an inflammatory process. Patchy opacity seen retrocardiac and in the left lower lung zone with obliteration of left costophrenic angle, suggesting mild pleural effusion with possible related infiltrates -EKG now in NS after metoprolol 5mg IV and digoxin 0.5mg -Trops x 1 negative -TSH WNL -Cardiology consulted - Cardiology consulted with recs to continue with his home coreg 3.25mg BID and eliquis 5mg bid. Continue plavix. Hold lasix for volume overload noted on CXR. Echo ordered and pending. Hold ASA due to starting DOAC. Code(s): I48.91 - UNSPECIFIED ATRIAL FIBRILLATION (4) ROLAND (obstructive sleep apnea) Current Visit: Yes Status: Acute Assessment & Plan: - Continue CPAP @ noc Code(s): G47.33 - OBSTRUCTIVE SLEEP APNEA (ADULT) (PEDIATRIC) (5) Presence of stent in coronary artery in patient with coronary artery disease Current Visit: Yes Status: Acute Assessment & Plan: -noted - continue Plavix Code(s): I25.10 - ATHSCL HEART DISEASE OF [place] CORONARY ARTERY W/O ANG PCTRS; Z95.5 - PRESENCE OF CORONARY ANGIOPLASTY IMPLANT AND GRAFT (6) Cholelithiasis Current Visit: No Status: Acute Assessment & Plan: - Chronic issue - CT abdomen with new nonobstructing left renal micro-calculus and cyst. Worsening cholelithiasis. Chronic findings including hiatal hernia, colonic diverticulosis arteriosclerotic disease, umbilical hernia, and chronic bony findings - follow up OP with GS (7) HTN (hypertension) Current Visit: Yes Status: Chronic Assessment & Plan: -stable - Continue home meds Code(s): I10 - ESSENTIAL (PRIMARY) HYPERTENSION (8) Obesity, Class II, BMI 35-39.9 Current Visit: Yes Status: Chronic Assessment & Plan: - advise ADA diet and exercise control VTE: plavix/ Eliquis PPI: protonix Dispo:1-2 days Code(s): E66.9 - OBESITY, UNSPECIFIED
[2023-12-18] MEDS: MOTRIN 600 MG PO PRN (15:24)
--- NOTE | 2023-12-18 16:32 | XRAY ---
Indication: Increasing short of breath. Comparison: December 17, 2023 PA/lateral chest demonstrates grossly stable lingula infiltrate/atelectasis and tiny left effusion. Remaining heart and right lung unremarkable. No new cardiopulmonary abnormalities.
[2023-12-19 05:19] LABS: Hemoglobin 11.8 g/dL (13.7-17.5); Mean Cell Volume 88.3 fL (79.0-92.2); Mean Corpuscular Hemoglobin 30.6 pg (25.7-32.2); Mean Corpuscular Hgb Concent. 34.7 g/dL (32.3-36.5); Mean Platelet Volume 8.9 fL (9.4-12.4); Platelet Count 108 x10^3/uL (163-337); Red Blood Count 3.85 x10^6/uL (4.63-6.08); Red Cell Distribution Width 12.4 % (11.6-14.4); White Blood Count 2.2 x10^3/uL (4.23-9.07)
[2023-12-19 05:40] LABS: ALBUMIN 3.5 g/dL (3.5-5.0); ANION GAP 11.9 MEQ/L (5-15); BILIRUBIN,TOTAL 1.1 mg/dL (0.2-1.3); Calcium 8.4 mg/dL (8.4-10.2); Creatinine 1 0.78 mg/dL (0.66-1.25); EST GLOMERULAR FILTRATION RATE 100.8 ML/MIN; Potassium 3.4 mmol/L (3.5-5.1); Total Protein 6.5 g/dL (6.3-8.2)
[2023-12-19 07:10] LABS: Direct Bilirubin 0.4 mg/dL (0.0-0.4)
[2023-12-19] MEDS ORDERED: K-LYTE PO SCH (08:30)
[2023-12-19 08:33] VITALS: O2SAT 96
[2023-12-19 09:29] LABS: Eosinophil 2 % (0.00-3.0); Lymphocytes 18 % (24-44); Monocyte 18 % (0.0-12.0); Neutrophils 62 % (1.78-5.38); Platelet Estimate DECREASED (NORMAL); Total Cells Counted 100
[2023-12-19] MEDS: K-LYTE PO SCH (10:30)
--- NOTE | 2023-12-19 11:10 | PCM.DS ---
Discharge Summary Date of Admission: 12/15/23 20:26 Date of Discharge: 12/19/23 Admitting Physician: WILLY RAMSEY MD Consults: Consults on Case 12/17/23 07:59 Consult Cardiology ROUTINE 12/18/23 15:31 Consult Surgery ROUTINE Primary Care Provider: MAGDI HILTON Allergies Allergies No Known Drug Allergies Allergy (Verified 12/15/23 20:47) Hospital Summary - Hospital Course Hospital Course: 12/18/23 Mr. Espinoza is a 63 year gentleman with CAD s/p PCI, HTN, HLD, DM2, and ROLAND. Admitted 12/14 with urosepsis after experiencing dysuria, rigors, chills, and dizziness x three days with rigors, chills, and dizziness the last day. Upon arrival to [facility], his laboratory data was remarkable for a UTI, HCO3 19, and an elevated bilirubin, while his imaging revealed chronic issues - umbilical hernia, hiatal hernia, and worsening cholelithiasis. Additionally, he was found to have soft blood pressures, but MAPs have been greater than 65. Urine cultures with ECOLI- with sensitivity to ceftriaxone. Blood showing gram - ID x 1 - may reflect contamination - plan to follow cultures - Antimicrobial History: Ceftriaxone - Zosyn. No residual on PVR. 12/17/23 patient with AFIB RVR- he was treated with metoprolol 5mg IVP and digoxin 0.5mg x1. Rhythm converted to NS. On Eliquis and plavix per cardiology recs. HR controlled. No chest pain reported. Records reviewed -Echo from 2019 showing EF of 40%. Patient does follow with Dr. Penn as OP. Cardiology consulted as this is new onset - most likely resultant from sepsis, recs pending. Hunter-Vasc score of 2. Patient was febrile again overnight with temp of 103. Dysuria has improved today. Cardiology consulted with recs to continue with his home Coreg 3.25mg BID and eliquis 5mg bid, and plavix. Hold lasix for volume overload noted on CXR. Echo ordered and pending. Hold ASA due to starting DOAC. Pt concerned about taking Eliquis and plavix and would like to discuss with cardiology. Message left with his [facility] administrator in regards to meds as this is what pt wanted, not tele cardiology per nurse. Pt developed fever of 103 last night again and pt reports he felt like he was dying. Antibiotics changed back to zosyn. BC x1 + for E-coli as well as Urine culture. Pt asking about having gallbladder removed and discussed that this would need to be f/u OP since he is septic. He denies CP, SOB, abd. pain, N/V/D. 12/19/23 Pt is sitting up in bed. He states he is feeling better and would like to go home today. US pending. [facility] explained they will not do gallbladder surgery at this time and can f/u OP. He did have a fever last night and it was brought down with meds. K+ 3.4 and replaced. Will d/c with Levaquin. He denies CP, SOB, and. pain, N/V/D. - Vitals & Intake/Output Vital Signs: Vital Signs Temperature 96.4 F 12/19/23 08:33 Pulse Rate 85 12/19/23 08:33 Respiratory Rate 18 12/19/23 08:33 Blood Pressure 119/69 12/19/23 08:33 O2 Sat by Pulse Oximetry 96 12/19/23 08:33 Intake & Output: Intake & Output 12/16/23 12/17/23 12/18/23 12/19/23 11:59 11:59 11:59 11:59 Intake Total 1554 3470 1695 960 Output Total 650 1750 Balance 1554 2820 1695 -790 Weight 113.8 kg - Lab Result Diagrams: 12/19/23 05:05 12/19/23 05:05 Lab Results-Last 24 Hrs: Lab Results-Last 24 Hours 12/18/23 12/18/23 12/18/23 Range/Units 11:31 16:26 16:50 WBC (4.23-9.07) x10^3/uL RBC (4.63-6.08) x10^6/uL Hgb (13.7-17.5) g/dL Hct (40.1-51.0) % MCV (79.0-92.2) fL MCH (25.7-32.2) pg MCHC (32.3-36.5) g/dL RDW (11.6-14.4) % Plt Count (163-337) x10^3/uL MPV (9.4-12.4) fL Segmented Neutrophils (1.78-5.38) % Lymphocytes (Manual) (24-44) % Monocytes (Manual) (0.0-12.0) % Eosinophils (Manual) (0.00-3.0) % Platelet Estimate (NORMAL) RBC Morphology Smear Path Review Sodium (135-145) mmol/L Potassium (3.5-5.1) mmol/L Chloride (98-107) mmol/L Carbon Dioxide (22-30) mmol/L Anion Gap (5-15) MEQ/L BUN (9-20) mg/dL Creatinine (0.66-1.25) mg/dL Estimated GFR ML/MIN Glucose (74-106) mg/dL POC Glucometer 215 H 120 H (74 to 106) mg/dL Lactic Acid 1.3 (0.4-2.0) Calcium (8.4-10.2) mg/dL Total Bilirubin (0.2-1.3) mg/dL Direct Bilirubin (0.0-0.4) mg/dL AST (17-59) U/L ALT (0-50) U/L Alkaline Phosphatase (38-126) U/L Serum Total Protein (6.3-8.2) g/dL Albumin (3.5-5.0) g/dL Procalcitonin (0.030-0.080) ng/mL 12/18/23 12/19/23 12/19/23 Range/Units 21:54 05:05 05:05 WBC 2.2 L (4.23-9.07) x10^3/uL RBC 3.85 L (4.63-6.08) x10^6/uL Hgb 11.8 L (13.7-17.5) g/dL Hct 34.0 L (40.1-51.0) % MCV 88.3 (79.0-92.2) fL MCH 30.6 (25.7-32.2) pg MCHC 34.7 (32.3-36.5) g/dL RDW 12.4 (11.6-14.4) % Plt Count 108 L (163-337) x10^3/uL MPV 8.9 L (9.4-12.4) fL Segmented Neutrophils 62 H (1.78-5.38) % Lymphocytes (Manual) 18 L (24-44) % Monocytes (Manual) 18 H (0.0-12.0) % Eosinophils (Manual) 2 (0.00-3.0) % Platelet Estimate DECREASED (NORMAL) RBC Morphology NORMAL Smear Path Review Pending Sodium 137 (135-145) mmol/L Potassium 3.4 L (3.5-5.1) mmol/L Chloride 108 H (98-107) mmol/L Carbon Dioxide 21 L (22-30) mmol/L Anion Gap 11.9 (5-15) MEQ/L BUN 17 (9-20) mg/dL Creatinine 0.78 (0.66-1.25) mg/dL Estimated GFR 100.8 ML/MIN Glucose 121 H (74-106) mg/dL POC Glucometer 206 H (74 to 106) mg/dL Lactic Acid (0.4-2.0) Calcium 8.4 (8.4-10.2) mg/dL Total Bilirubin 1.10 (0.2-1.3) mg/dL Direct Bilirubin 0.4 (0.0-0.4) mg/dL AST 53 (17-59) U/L ALT 30 (0-50) U/L Alkaline Phosphatase 80 (38-126) U/L Serum Total Protein 6.5 (6.3-8.2) g/dL Albumin 3.5 (3.5-5.0) g/dL Procalcitonin (0.030-0.080) ng/mL 12/19/23 12/19/23 Range/Units 05:05 08:06 WBC (4.23-9.07) x10^3/uL RBC (4.63-6.08) x10^6/uL Hgb (13.7-17.5) g/dL Hct (40.1-51.0) % MCV (79.0-92.2) fL MCH (25.7-32.2) pg MCHC (32.3-36.5) g/dL RDW (11.6-14.4) % Plt Count (163-337) x10^3/uL MPV (9.4-12.4) fL Segmented Neutrophils (1.78-5.38) % Lymphocytes (Manual) (24-44) % Monocytes (Manual) (0.0-12.0) % Eosinophils (Manual) (0.00-3.0) % Platelet Estimate (NORMAL) RBC Morphology Smear Path Review Sodium (135-145) mmol/L Potassium (3.5-5.1) mmol/L Chloride (98-107) mmol/L Carbon Dioxide (22-30) mmol/L Anion Gap (5-15) MEQ/L BUN (9-20) mg/dL Creatinine (0.66-1.25) mg/dL Estimated GFR ML/MIN Glucose (74-106) mg/dL POC Glucometer 104 (74 to 106) mg/dL Lactic Acid (0.4-2.0) Calcium (8.4-10.2) mg/dL Total Bilirubin (0.2-1.3) mg/dL Direct Bilirubin (0.0-0.4) mg/dL AST (17-59) U/L ALT (0-50) U/L Alkaline Phosphatase (38-126) U/L Serum Total Protein (6.3-8.2) g/dL Albumin (3.5-5.0) g/dL Procalcitonin 0.428 H (0.030-0.080) ng/mL Micro Results-Entire Visit: Microbiology 12/17/23 09:05 Blood Culture - Preliminary Blood 12/17/23 08:55 Blood Culture - Preliminary Blood 12/15/23 16:08 Blood Culture Gram Stain - Final Blood Blood Culture - Final Escherichia Coli 12/15/23 16:08 Blood Culture - Preliminary Blood 12/15/23 18:02 Urine Culture - Final Clean Catch Midstream Escherichia Coli Accuchecks Date 12/19/23 Date 12/18/23 - Radiology Exams Ordered Rad Exams-Entire Visit: Radiology Procedures Category Date Time Status ABDOMINAL-LIMITED [US] Routine Exams 12/19/23 08:00 Ordered CHEST 2 VIEWS (PA AND LAT) Routine Exams 12/18/23 15:15 Completed ECHO W/2D AND DOPPLER [US] Routine Exams 12/18/23 08:00 Taken - Procedures and Test Procedures and Tests throughout Hospitalization: Therapy Orders & Screens 12/16/23 18:55 BiPap/CPAP ROUTINE Comment: Diagnosis: UTI, fever, hypotension 12/17/23 08:02 EKG STAT Comment: Diagnosis: UTI, fever, hypotension 12/17/23 12:23 EKG ROUTINE Comment: Diagnosis: UTI, fever, hypotension 12/18/23 03:43 EKG ONCE Comment: Diagnosis: UTI, fever, hypotension Discharge Exam General Appearance: no apparent distress, alert, obese Neurologic Exam: alert, oriented x 3, cooperative, normal mood/affect, nml cerebellar function, sensation nml, No motor deficits Eye Exam: PERRL, EOMI, eyes nml inspection Ears, Nose, Throat Exam: normal ENT inspection, pharynx normal, moist mucous membranes Neck Exam: normal inspection, non-tender, supple, full range of motion Respiratory Exam: normal breath sounds, lungs clear, No respiratory distress Cardiovascular Exam: regular rate/rhythm, normal heart sounds Gastrointestinal/Abdomen Exam: soft, No tenderness, No mass Male Genitalia Exam: deferred Rectal Exam: deferred Back Exam: normal inspection, normal range of motion, No CVA tenderness, No vertebral tenderness Extremity Exam: normal inspection, normal range of motion Skin Exam: normal color, warm, dry Final Diagnosis/Problem List - Final Discharge Diagnosis/Problem (1) Sepsis due to gram-negative UTI Current Visit: Yes Status: Acute Code(s): A41.50 - GRAM-NEGATIVE SEPSIS, UNSPECIFIED; N39.0 - URINARY TRACT INFECTION, SITE NOT SPECIFIED (2) Diabetes mellitus Current Visit: Yes Status: Chronic Code(s): E11.9 - TYPE 2 DIABETES MELLITUS WITHOUT COMPLICATIONS (3) New onset a-fib Current Visit: Yes Status: Acute Code(s): I48.91 - UNSPECIFIED ATRIAL FIBRILLATION (4) ROLAND (obstructive sleep apnea) Current Visit: Yes Status: Acute Code(s): G47.33 - OBSTRUCTIVE SLEEP APNEA (ADULT) (PEDIATRIC) (5) Presence of stent in coronary artery in patient with coronary artery disease Current Visit: Yes Status: Acute Code(s): I25.10 - ATHSCL HEART DISEASE OF [place] CORONARY ARTERY W/O ANG PCTRS; Z95.5 - PRESENCE OF CORONARY ANGIOPLASTY IMPLANT AND GRAFT (6) Cholelithiasis Current Visit: No Status: Acute (7) HTN (hypertension) Current Visit: Yes Status: Chronic Code(s): I10 - ESSENTIAL (PRIMARY) HYPERTENSION (8) Obesity, Class II, BMI 35-39.9 Current Visit: Yes Status: Chronic Assessment & Plan: (1) Sepsis due to gram-negative UTI Current Visit: Yes Status: Acute Assessment & Plan: Assessment & Plan: -Ucult with with ECOLI -Antimicrobial history: Zosyn (12/15 -12/16) Ceftriaxone ( 810 - resumed 12/16) -Blood cultures x 1 with gram - ID - pending final -LA WNL -Procal at 0.752 -CXR 12/15/[address] proven lingula pleural-parenchymal thickening/scarring. Remaining heart and lungs unremarkable. -Repeat CXR 12/17/23 demonstrates rominant bronchovascuilar markings bilaterally may be due to pulmonary congestion or an inflammatory process. Patchy opacity seen retrocardiac and in the left lower lung zone with obliteration of left costophrenic angle, suggesting mild pleural effusion with possible related infiltrates -COVID resp viral panel negative -CT abdomen with new nonobstructing left renal micro-calculus and cyst. Worsening cholelithiasis. Chronic findings including hiatal hernia, colonic diverticulosis arteriosclerotic disease, umbilical hernia, and chronic bony findings. 12/17 - temp 103 last night - changed antibiotics to Zosyn - BC x1 and UC both + for E-coli - repeat CXR - resp increased PA/lateral chest demonstrates grossly stable lingula infiltrate/atelectasis and tiny left effusion. Remaining heart and right lung unremarkable. No new cardiopulmonary abnormalities. 12/18 - SOB resolved - 101 temp last night- resolved with tylenol - Start Levaquin OP Code(s): A41.50 - GRAM-NEGATIVE SEPSIS, UNSPECIFIED; N39.0 - URINARY TRACT INFECTION, SITE NOT SPECIFIED (2) Diabetes mellitus Current Visit: Yes Status: Chronic Assessment & Plan: -ADA diet -SSI -A1c 7.08- controlled Code(s): E11.9 - TYPE 2 DIABETES MELLITUS WITHOUT COMPLICATIONS (3) New onset a-fib Current Visit: Yes Status: Acute Assessment & Plan: -Most likely secondary to sepsis -CXR 12/17/23 demonstrates rominant bronchovascuilar markings bilaterally may be due to pulmonary congestion or an inflammatory process. Patchy opacity seen retrocardiac and in the left lower lung zone with obliteration of left costophrenic angle, suggesting mild pleural effusion with possible related infiltrates -EKG now in NS after metoprolol 5mg IV and digoxin 0.5mg -Trops x 1 negative -TSH WNL -Cardiology consulted - Cardiology consulted with recs to continue with his home coreg 3.25mg BID and eliquis 5mg bid. Continue plavix. Hold lasix for volume overload noted on CXR. Echo ordered and pending. Hold ASA due to starting DOAC. 12/17 - Pt questioning Plavix and eliquis-Pt's [employer] administrator called and his recs were to continue Plavix and Eliquis- pt notified Code(s): I48.91 - UNSPECIFIED ATRIAL FIBRILLATION (4) ROLAND (obstructive sleep apnea) Current Visit: Yes Status: Acute Assessment & Plan: - Continue CPAP @ noc Code(s): G47.33 - OBSTRUCTIVE SLEEP APNEA (ADULT) (PEDIATRIC) (5) Presence of stent in coronary artery in patient with coronary artery disease Current Visit: Yes Status: Acute Assessment & Plan: -noted - continue Plavix Code(s): I25.10 - ATHSCL HEART DISEASE OF [place] CORONARY ARTERY W/O ANG PCTRS; Z95.5 - PRESENCE OF CORONARY ANGIOPLASTY IMPLANT AND GRAFT (6) Cholelithiasis Current Visit: No Status: Acute Assessment & Plan: - Chronic issue - CT abdomen with new nonobstructing left renal micro-calculus and cyst. Worsening cholelithiasis. Chronic findings including hiatal hernia, colonic diverticulosis arteriosclerotic disease, umbilical hernia, and chronic bony findings - follow up OP with GS 12/18 - Abd US: Impression: Nonvisualization pancreas. Cholelithiasis in neck of gallbladder with abnormal gallbladder wall thickening. Rule out chronic cholecystitis. -F/U with GS OP (7) HTN (hypertension) Current Visit: Yes Status: Chronic Assessment & Plan: -stable - Continue home meds Code(s): I10 - ESSENTIAL (PRIMARY) HYPERTENSION (8) Obesity, Class II, BMI 35-39.9 Current Visit: Yes Status: Chronic Assessment & Plan: - advise ADA diet and exercise control Code(s): E66.9 - OBESITY, UNSPECIFIED - Discharge Discharge Date: 12/19/23 Disposition: Home, Self-Care Condition: Fair Prescriptions: New Apixaban [Eliquis 2.5 mg Tablet] 5 mg PO BID 30 Days #60 tablet Levofloxacin [Levofloxacin 500 MG Tablet] 500 mg PO DAILY 14 Days #14 tablet Potassium Bicarbonate [K-Lyte ] 25 meq PO DAILY 2 Days #2 tablet Continue Tamsulosin HCl 0.4 mg [Flomax 0.4 MG] 0.4 mg PO DAILY #7 cap Glimepiride 4 mg [Amaryl 4 mg] 4 mg PO DAILY Ezetimibe 10 mg [Zetia 10 MG] 10 mg PO DAILY Clopidogrel Bisulfate [PLAVIX Tablet] 75 mg PO DAILY Rosuvastatin Calcium [Crestor] 40 mg PO DAILY Carvedilol 3.125 mg [Coreg 3.125 MG] 3.125 mg PO DAILY Metformin HCl [Metformin HCl ER] 750 mg PO DAILY Fesoterodine Fumarate [Toviaz] 4 mg PO DAILY Empagliflozin [Jardiance] 10 mg PO DAILY Discontinued Aspirin 81 mg PO DAILY Follow up with: MAGDI HILTON MD [Primary Care Provider] -
--- NOTE | 2023-12-19 11:18 | XRAY ---
Indication: Gallstones. Two-dimensional right upper quadrant abdominal sonogram performed. Comparison: None Pancreas not well-seen due to overlying bowel gas. Normally distended gallbladder with a few gallstones in the neck of the gallbladder, largest 1.4 cm. Abnormal gallbladder wall thickening up to 4.7 mm. No pericholecystic fluid. Common bile duct measures 6.9 mm. No intrahepatic biliary distention. Remaining visualized liver and right kidney are sonographically unremarkable. Right kidney measures 11.9 x 6.0 x 6.1 cm. Impression: Nonvisualization pancreas. Cholelithiasis in neck of gallbladder with abnormal gallbladder wall thickening. Rule out chronic cholecystitis.
[2023-12-19 13:09] VITALS: BP 124/70; PULSE 88; RESP 20; TEMP 97.8
--- NOTE | 2023-12-20 11:50 | CONS ---
DATE OF SERVICE: 12/19/2023 HISTORY OF PRESENT ILLNESS: This is a 63-year-old male with history of coronary artery disease and stenting requiring Plavix as well as AFib now on Xarelto. He presented a few days ago to the hospital with generalized malaise and fevers. He was diagnosed with a UTI. Blood cultures and urine cultures are both positive for E coli. He has been treated with different courses of IV antibiotics over this time and overall is not totally improved. He still feels some generalized malaise and intermittently has fevers, but he denies any abdominal pain at any point. He has been able to eat fine but just has overall low appetite. Once again, he denies postprandial abdominal pain, right upper quadrant abdominal pain. Surgery was asked to evaluate him because CAT scan did demonstrate cholelithiasis and to evaluate whether the gallbladder could be a source of his persistent sepsis. PAST MEDICAL HISTORY: As stated, coronary artery disease with stenting requiring Plavix, AFib requiring anticoagulation. PAST SURGICAL HISTORY: He states he only had a colonoscopy a couple of years ago and had benign polyps removed with Dr. Kapil Prakash. REVIEW OF SYSTEMS: Negative unless stated in the HPI. PHYSICAL EXAMINATION: GENERAL: Alert and oriented. Well nourished. CARDIOVASCULAR: Currently in sinus rhythm. RESPIRATORY: Nonlabored breathing on room air. ABDOMEN: Soft, nontender, nondistended. No scars noted. No hernias noted. MUSCULOSKELETAL: Well perfused extremities with normal motor and sensory function. ASSESSMENT: 1) Urosepsis. 2) Asymptomatic cholelithiasis. PLAN: I reviewed his labs and imaging extensively. CAT scan does show a good amount of cholelithiasis in the gallbladder but there does not seem to be any symptoms arising from this. I did review his labs. His white count is normal. His total bilirubin is mildly elevated but his direct bilirubin is normal; therefore, it is unlikely that the gallstones are causing any biliary obstruction at this time. I do not believe that his gallbladder is contributing to his current issue. If there is further concern that it could be, then the next step would be to get a HIDA scan to rule out cystic duct obstruction. I currently do not believe that this is necessary but if any providers in the future do feel differently, then we would recommend having a HIDA scan done. No surgery planned at this point. We can follow up outpatient with him after his hospital discharge for further discussion about his gallbladder. Thank you for the consultation.
== END 2023-12-19 13:55 | disposition home or self-care (01) | DRG 872 ==
LOC: ED 15:08 → OBSVTOIN 20:26 → MED SURG 20:26 → ICU 12-17 08:36
PROVIDERS: ADMIT Internal Medicine Critical Care Medicine; ATTEND Internal Medicine Critical Care Medicine
DX: A41.50 Gram-negative sepsis, unspecified (principal); N39.0 Urinary tract infection, site not specified; B96.20 Unspecified Escherichia coli [E. coli] as the cause of diseases classified elsewhere; E11.9 Type 2 diabetes mellitus without complications; I48.91 Unspecified atrial fibrillation; G47.33 Obstructive sleep apnea (adult) (pediatric); I25.10 Atherosclerotic heart disease of native coronary artery without angina pectoris; Z95.5 Presence of coronary angioplasty implant and graft; K80.20 Calculus of gallbladder without cholecystitis without obstruction; I10 Essential (primary) hypertension; E66.9 Obesity, unspecified; K42.9 Umbilical hernia without obstruction or gangrene; K44.9 Diaphragmatic hernia without obstruction or gangrene; Z79.01 Long term (current) use of anticoagulants; Z79.899 Other long term (current) drug therapy
CPT/HCPCS: 0241U; 36000; 36415; 71045; 71046; 74176; 76705; 80053; 81001; 82248; 82550; 82947; 83036; 83605; 83735; 83880; 84145; 84443; 84484; 85025; 85027; 86308; 87040; 87077; 87086; 87186; 93005; 93041; 93306; 94660; 94760; 96360; 96361; 96365; 99285; 99291; 96374; J0696; J1160; J2405; Q3014; A9270-GY